=== PATIENT | male | born 1935 | race Hispanic/Latino ===

== ENCOUNTER 2017-03-02 16:34 | Emergency (ER) | payer MEDICARE ==
--- NOTE | 2017-03-02 20:32 | Emergency Department Report ---
ED General Adult HPI - General Chief complaint: Fall Stated complaint: MULTIPLE FALLS Time Seen by Provider: 03/02/17 20:16 Source: patient, EMS Mode of arrival: Stretcher Limitations: Physical Limitation - History of Present Illness Initial comments: Patient is a 81-year-old male who is presenting status post fall. Patient states he fell from his porch. Patient states he was not dizzy had no shortness of breath or chest pain at the time. Patient states he simply fell because his foot caught on the ground and he toppled over. Patient has had multiple falls recently. -: This afternoon Location: upper extremity (patient has a skin tear to the right shoulder. Patient denying any pain at this time. Patient states he can move his shoulder with no issues. Patient denies hitting his head. Patient denies loss of consciousness.) Severity scale (0 -10): 2 Consistency: now resolved Improves with: none Worsens with: none Associated Symptoms: denies: confusion, chest pain, cough, diaphoresis, fever/ chills, headaches, malaise, nausea/vomiting, rash, seizure, shortness of breath , syncope, weakness - Related Data Previous Rx's Medication Instructions Recorded Last Taken Type ALBUTEROL NEB's [Proventil 0.083% 2.5 mg IH Q4HRT PRN #30 nebu 11/29/16 Unknown Rx NEBS] Bisacodyl [Dulcolax suppos] 10 mg [place] QDAY PRN #30 supp.rect 11/29/16 Unknown Rx Cyanocobalamin [Vitamin B-12] 1,000 mcg PO QDAY #30 tablet 11/29/16 Unknown Rx Ferrous Sulfate [Feosol 325 MG tab] 325 mg PO BID #60 tablet 11/29/16 Unknown Rx HYDROcodone/APAP 5-325 [[place] 1 each PO Q6H PRN #30 tablet 11/29/16 Unknown Rx 5-325 mg TAB] Levofloxacin [Levaquin] 750 mg PO QDAY #5 tablet 11/29/16 Unknown Rx Metoprolol [Lopressor TAB] 25 mg PO BID #60 tablet 11/29/16 Unknown Rx Allergies Allergy/AdvReac Type Severity Reaction Status Date / Time Penicillins Allergy Hives Verified 05/10/14 21:24 ED Review of Systems ROS: Stated complaint: MULTIPLE FALLS Other details as noted in HPI Comment: All other systems reviewed and negative ED Past Medical Hx - Past Medical History Hx Hypertension: Yes (not presently on meds) Hx Asthma: Yes Hx COPD: Yes (severe, not on home o2) Hx HIV: No - Social History Smoking Status: Current Every Day Smoker Substance Use Type: None - Medications Home Medications: Home Medications Medication Instructions Recorded Confirmed Last Taken Type ALBUTEROL NEB's [Proventil 0.083% 2.5 mg IH Q4HRT PRN #30 nebu 11/29/16 Unknown Rx NEBS] Bisacodyl [Dulcolax suppos] 10 mg [place] QDAY PRN #30 supp.rect 11/29/16 Unknown Rx Cyanocobalamin [Vitamin B-12] 1,000 mcg PO QDAY #30 tablet 11/29/16 Unknown Rx Ferrous Sulfate [Feosol 325 MG tab] 325 mg PO BID #60 tablet 11/29/16 Unknown Rx HYDROcodone/APAP 5-325 [[place] 1 each PO Q6H PRN #30 tablet 11/29/16 Unknown Rx 5-325 mg TAB] Levofloxacin [Levaquin] 750 mg PO QDAY #5 tablet 11/29/16 Unknown Rx Metoprolol [Lopressor TAB] 25 mg PO BID #60 tablet 11/29/16 Unknown Rx ED Physical Exam - General Limitations: Physical Limitation General appearance: alert, in no apparent distress - Head Head exam: Present: atraumatic, normocephalic - Eye Eye exam: Present: normal appearance - ENT ENT exam: Present: mucous membranes moist - Neck Neck exam: Present: normal inspection - Respiratory Respiratory exam: Present: normal lung sounds bilaterally. Absent: respiratory distress - Cardiovascular Cardiovascular Exam: Present: regular rate, normal rhythm. Absent: systolic murmur, diastolic murmur, rubs, gallop - GI/Abdominal GI/Abdominal exam: Present: soft, normal bowel sounds - Rectal Rectal exam: Present: deferred - Extremities Exam Extremities exam: Present: normal inspection - Back Exam Back exam: Present: normal inspection - Neurological Exam Neurological exam: Present: alert, oriented X3 - Psychiatric Psychiatric exam: Present: normal affect, normal mood - Skin Skin exam: Present: warm, dry, intact, normal color, other (patient has a 4 x 4 centimeter skin tear to the right deltoid. There is also a small skin tear on the right forearm.). Absent: rash ED Course Vital Signs 03/02/17 03/02/17 03/02/17 16:48 19:48 21:08 Temperature 97.8 F 97.8 F Pulse Rate 82 98 H Pulse Rate [ 80 Lying] Respiratory 18 20 Rate Blood Pressure 102/55 Blood Pressure 110/62 [Left] Blood Pressure 112/61 [Lying] O2 Sat by Pulse 99 95 Oximetry 03/03/17 03/03/17 01:57 03:34 Temperature 98.9 F Pulse Rate 72 84 Pulse Rate [ Lying] Respiratory 20 20 Rate Blood Pressure Blood Pressure 94/56 99/56 [Left] Blood Pressure [Lying] O2 Sat by Pulse 94 100 Oximetry ED Medical Decision Making - Lab Data Result diagrams: 03/02/17 21:57 03/02/17 21:57 - Medical Decision Making Patient received 2 L of normal saline. A blood pressure did stabilize to roughly 95 systolic. Patient is very small and frail this most likely represents a normal blood pressure for this gentleman. Patient was having no symptoms upon standing. Patient's skin tear will be dressed with nonstick dressings and patient will be discharged at this time. Critical care attestation.: If time is entered above; I have spent that time in minutes in the direct care of this critically ill patient, excluding procedure time. ED Disposition Clinical Impression: Dehydration, Skin tear Disposition: DC-01 TO HOME OR SELFCARE Is pt being admited?: No Does the pt Need Aspirin: No Condition: Fair Instructions: Skin Tear (ED), Dehydration (ED) Referrals: [place] GOMEZ MD [Primary Care Provider] - 3-5 Days
[2017-03-02] MEDS ORDERED: NACL 0.9% 1000 ML 1,000 ML IV ONE (21:28)
[2017-03-02 22:17] LABS: Basophils % (Auto) 0.1 % (0.0-1.8); Hematocrit 34.8 % (35.5-45.6); Hemoglobin 11.2 gm/dl (11.8-15.2); Lymphocytes # (Auto) 1.2 K/mm3 (1.2-5.4); Lymphocytes % (Auto) 6.5 % (13.4-35.0); Mean Corpuscular HGB Conc 32 % (32-34); Mean Corpuscular Volume 76 fl (84-94); Monocytes # (Auto) 0.8 K/mm3 (0.0-0.8); Monocytes % (Auto) 4.3 % (0.0-7.3); Platelet Count 329 K/mm3 (140-440); Red Blood Count 4.61 M/mm3 (3.65-5.03); Red Cell Distribution Width 19.4 % (13.2-15.2)
[2017-03-02 22:31] LABS: BUN/Creatinine Ratio 26; Blood Urea Nitrogen 21 mg/dL (9-20); Calcium 8.3 mg/dL (8.4-10.2); Hemolysis Index 10
[2017-03-02 22:34] LABS: Mean Corpuscular Hemoglobin 24 pg (28-32)
[2017-03-03] MEDS ORDERED: NACL 0.9% 1000 ML 1,000 ML IV ONE (00:29)
[2017-03-03 03:35] VITALS: BP 99/56
== END 2017-03-03 06:55 | disposition home or self-care (01) ==
LOC: ED 16:34
DX: S46.911A Strain of unspecified muscle, fascia and tendon at shoulder and upper arm level, right arm, initial encounter (principal); E86.0 Dehydration; W18.30XA Fall on same level, unspecified, initial encounter; Y93.89 Activity, other specified; Y92.89 Other specified places as the place of occurrence of the external cause; Y99.8 Other external cause status; I10 Essential (primary) hypertension; J45.909 Unspecified asthma, uncomplicated; F17.200 Nicotine dependence, unspecified, uncomplicated
CPT/HCPCS: 36415; 80048; 85025; 96360; 96361; 99284; J7030; 96375

== ENCOUNTER 2017-03-23 17:51 | Inpatient (IN) | payer MEDICARE ==
--- NOTE | 2017-03-23 22:32 | XRay Report ---
FINAL REPORT EXAM: XR CHEST 1V AP HISTORY: sob TECHNIQUE: AP portable view of the chest. PRIORS: None. FINDINGS: The cardiomediastinal silhouette appears normal. There is a large right mid to lower lung airspace infiltrate and large right pleural effusion. The bones are diffusely demineralized. IMPRESSION: Large right mid to lower lung airspace infiltrate consistent with pneumonia. Large right pleural effusion.
--- NOTE | 2017-03-23 23:25 | Cat Scan Report ---
FINAL REPORT EXAM: CT HEAD/BRAIN WO CON HISTORY: ? slurred speech TECHNIQUE: Contiguous axial images of the head were obtained without the use of intravenous contrast. PRIORS: None. FINDINGS: The cerebral hemispheres are without focal lesions. There is no evidence of acute infarct or intracranial hemorrhage. There is no mass lesion or mass effect. There are no abnormal extra-axial fluid collections. The ventricles and sulci are prominent consistent with generalized loss of brain substance, appropriate for age. There is deep white matter lucency consistent with chronic microvascular ischemic disease. The visualized skull and orbits are unremarkable. The visualized paranasal sinuses are clear. IMPRESSION: 1. No evidence of acute infarct or intracranial hemorrhage. 2. White matter lucency consistent with chronic microvascular ischemic disease.
[2017-03-23] MEDS ORDERED: LEVAQUIN 750MG/150ML 750 MG/150 ML BAG IV ONE (23:28)
--- NOTE | 2017-03-23 23:52 | Emergency Department Report ---
- General Chief complaint: Medical Clearance Stated complaint: SLURRED SPEECH/WORMS IN STOOL Time Seen by Provider: 03/23/17 21:41 Source: EMS Mode of arrival: Stretcher Limitations: No Limitations - History of Present Illness Initial comments: 81 yo male with a past medical history COPD (not on home oxygen), asthma, and hypertension presents to the hospital with complaints of generalized weakness for the last 4-5 days. Patient has been wheelchair bound 1 month but unable to get up without total assistance for the last 4-5 days. Decreased appetite reported. No complaints of pain or fever. Patient presents alert and oriented to person, place, but not severe. He has no physical complaints but patient has a lot of congestion and wet sounding cough during examination. Case discussed with patient's son was able to provide history listed above. Patient denies any pain. Son expresses confirm for slurred speech and possible stroke. He also states that patient has worms moving around in his stools. Son's phone number is [phone] Severity scale (0 -10): 0 - Related Data Previous Rx's Medication Instructions Recorded Last Taken Type ALBUTEROL NEB's [Proventil 0.083% 2.5 mg IH Q4HRT PRN #30 nebu 11/29/16 Unknown Rx NEBS] Bisacodyl [Dulcolax suppos] 10 mg [place] QDAY PRN #30 supp.rect 11/29/16 Unknown Rx Cyanocobalamin [Vitamin B-12] 1,000 mcg PO QDAY #30 tablet 11/29/16 Unknown Rx Ferrous Sulfate [Feosol 325 MG tab] 325 mg PO BID #60 tablet 11/29/16 Unknown Rx HYDROcodone/APAP 5-325 [[place] 1 each PO Q6H PRN #30 tablet 11/29/16 Unknown Rx 5-325 mg TAB] Metoprolol [Lopressor TAB] 25 mg PO BID #60 tablet 11/29/16 Unknown Rx Allergies Allergy/AdvReac Type Severity Reaction Status Date / Time Penicillins Allergy Hives Verified 03/23/17 17:55 ED Review of Systems ROS: Stated complaint: SLURRED SPEECH/WORMS IN STOOL Other details as noted in HPI Comment: Unobtainable due to pts medical conditions (limited, pt does not voice complaints) ED Past Medical Hx - Past Medical History Hx Hypertension: Yes (not presently on meds) Hx Asthma: Yes Hx COPD: Yes (severe, not on home o2) Hx HIV: No - Social History Smoking Status: Current Every Day Smoker Substance Use Type: None - Medications Home Medications: Home Medications Medication Instructions Recorded Confirmed Last Taken Type ALBUTEROL NEB's [Proventil 0.083% 2.5 mg IH Q4HRT PRN #30 nebu 11/29/16 Unknown Rx NEBS] Bisacodyl [Dulcolax suppos] 10 mg [place] QDAY PRN #30 supp.rect 11/29/16 03/23/17 Unknown Rx Cyanocobalamin [Vitamin B-12] 1,000 mcg PO QDAY #30 tablet 11/29/16 03/23/17 Unknown Rx Ferrous Sulfate [Feosol 325 MG tab] 325 mg PO BID #60 tablet 11/29/16 03/23/17 Unknown Rx HYDROcodone/APAP 5-325 [[place] 1 each PO Q6H PRN #30 tablet 11/29/16 03/23/17 Unknown Rx 5-325 mg TAB] Metoprolol [Lopressor TAB] 25 mg PO BID #60 tablet 11/29/16 03/23/17 Unknown Rx ED Physical Exam - General Limitations: No Limitations - Other Other exam information: General: No limitations Head exam: Atraumatic, normocephalic Eyes exam: Normal appearance ENT: Moist mucous membrane, normal oropharynx Neck exam: Normal inspection, full range of motion Respiratory exam: Wet sounding cough, bilateral rhonchi greater on the right with diminished right base breath sounds Cardiovascular: Regular rate and rhythm Abdomen: Soft, nondistended, and nontender, with normal bowel sounds, no rebound, or guarding Extremity: Full range of motion normal inspection no deformity Back: Normal Inspection, full range of motion, no tenderness Neurologic: Alert, oriented x2 (not to year), some mild slurred speech. Cranial nerves intact. Equal hand production material coordinator with 5/5 upper extremity strength. The foot dorsiflexion with some antigravity movement of her legs unable to sustain either leg. Nonfocal exam. Sensation grossly intact Psychiatric: normal affect, normal mood Skin: Warm, dry, intact ED Course Vital Signs 03/23/17 03/23/17 03/24/17 17:55 21:37 00:02 Temperature 98.0 F Pulse Rate 90 96 H 95 H Respiratory 22 20 22 Rate Blood Pressure 120/60 133/65 Blood Pressure 125/70 [Left] O2 Sat by Pulse 99 96 96 Oximetry - Reevaluation(s) Reevaluation #1: 03/24/17 00:16 called son and given an update regarding admission plan, pneumonia, hypoxia and effusion. labs pending at this time ED Medical Decision Making - Lab Data Result diagrams: 03/24/17 00:01 03/24/17 00:01 Lab Results 03/23/17 03/23/17 03/24/17 Range/Units 22:52 23:19 00:01 WBC 7.6 (4.5-11.0) K/mm3 RBC 4.77 (3.65-5.03) M/mm3 Hgb 11.7 L (11.8-15.2) gm/dl Hct 36.8 (35.5-45.6) % MCV 77 L (84-94) fl MCH 25 L (28-32) pg MCHC 32 (32-34) % RDW 21.1 H (13.2-15.2) % Plt Count 415 (140-440) K/mm3 Lymph % (Auto) 6.5 L (13.4-35.0) % [place] % (Auto) 11.8 H (0.0-7.3) % Eos % (Auto) 0.0 (0.0-4.3) % Baso % (Auto) 0.2 (0.0-1.8) % Lymph # 0.5 L (1.2-5.4) K/mm3 [place] # 0.9 H (0.0-0.8) K/mm3 Eos # 0.0 (0.0-0.4) K/mm3 Baso # 0.0 (0.0-0.1) K/mm3 Seg Neutrophils % 81.5 H (40.0-70.0) % Seg Neutrophils # 6.2 (1.8-7.7) K/mm3 POC ABG pH 7.324 L 7.331 L (7.35-7.45) POC ABG pCO2 72.2 H 69.4 H (35-45) POC ABG pO2 39 L 33 L (80-105) POC ABG HCO3 37.5 36.7 POC ABG Total CO2 40 39 POC ABG O2 Sat 66 56 POC ABG Base Excess 11 11 FiO2 21 21 % Sodium (137-145) mmol/L Potassium (3.6-5.0) mmol/L Chloride (98-107) mmol/L Carbon Dioxide (22-30) mmol/L Anion Gap mmol/L BUN (9-20) mg/dL Creatinine (0.8-1.5) mg/dL Estimated GFR ml/min BUN/Creatinine Ratio % Glucose (75-100) mg/dL Lactic Acid (0.7-2.0) mmol/L Calcium (8.4-10.2) mg/dL Magnesium (1.7-2.3) mg/dL Total Creatine Kinase (55-170) units/L CK-MB (CK-2) (0.0-4.0) ng/mL CK-MB (CK-2) Rel Index (0-4) Troponin T (0.00-0.029) ng/mL NT-Pro-B Natriuret Pep (0-900) pg/mL 03/24/17 03/24/17 03/24/17 Range/Units 00:01 00:01 00:01 WBC (4.5-11.0) K/mm3 RBC (3.65-5.03) M/mm3 Hgb (11.8-15.2) gm/dl Hct (35.5-45.6) % MCV (84-94) fl MCH (28-32) pg MCHC (32-34) % RDW (13.2-15.2) % Plt Count (140-440) K/mm3 Lymph % (Auto) (13.4-35.0) % [place] % (Auto) (0.0-7.3) % Eos % (Auto) (0.0-4.3) % Baso % (Auto) (0.0-1.8) % Lymph # (1.2-5.4) K/mm3 [place] # (0.0-0.8) K/mm3 Eos # (0.0-0.4) K/mm3 Baso # (0.0-0.1) K/mm3 Seg Neutrophils % (40.0-70.0) % Seg Neutrophils # (1.8-7.7) K/mm3 POC ABG pH (7.35-7.45) POC ABG pCO2 (35-45) POC ABG pO2 (80-105) POC ABG HCO3 POC ABG Total CO2 POC ABG O2 Sat POC ABG Base Excess FiO2 % Sodium 141 (137-145) mmol/L Potassium 5.2 H (3.6-5.0) mmol/L Chloride 97.7 L (98-107) mmol/L Carbon Dioxide 30 (22-30) mmol/L Anion Gap 19 mmol/L BUN 32 H (9-20) mg/dL Creatinine 0.5 L (0.8-1.5) mg/dL Estimated GFR > 60 ml/min BUN/Creatinine Ratio 64 % Glucose 68 L (75-100) mg/dL Lactic Acid 1.20 (0.7-2.0) mmol/L Calcium 8.8 (8.4-10.2) mg/dL Magnesium 2.20 (1.7-2.3) mg/dL Total Creatine Kinase 25 L (55-170) units/L CK-MB (CK-2) 3.8 (0.0-4.0) ng/mL CK-MB (CK-2) Rel Index 15.2 H (0-4) Troponin T 0.015 (0.00-0.029) ng/mL NT-Pro-B Natriuret Pep 6340 H (0-900) pg/mL - EKG Data -: EKG Interpreted by Me (pac's) EKG shows normal: sinus rhythm (92), axis (68), QRS complexes (118), ST-T waves (no stemi/t inv) - EKG Data When compared to previous EKG there are: no significant change - Radiology Data Radiology results: report reviewed ct head: no acute finding or intracranial hemorrhage. white matter lucency conststent with chronic microvascular ischemic disease Chest x-ray: Large right mid to lower lung x-ray consistent with pneumonia. Large right pleural fusion - Medical Decision Making Generalized weakness , slurred speech, decreased mental status Likely related to hypoxia CT head without acute findings UA collection pending Nonfocal exam Pneumonia/effusion Associated hypoxia Supplemental oxygen provided Pulses COPD with retention. Chronic component based on minimal respiratory acidosis BiPAP initiated Levaquin initiated Cultures pending No signs of sepsis or septic shock at this time Worms in stool report Stool studies ordered and pending Son informed of patient admission Hospitalist informed for admission - Differential Diagnosis CO2 retention, hypoxemia, pneumonia, effusion, CVA, infection Critical Care Time: No Critical care attestation.: If time is entered above; I have spent that time in minutes in the direct care of this critically ill patient, excluding procedure time. ED Disposition Clinical Impression: Pneumonia, Pleural effusion, right, Elevated brain natriuretic peptide (BNP) level, Hypoxia, CO2 retention, COPD (chronic obstructive pulmonary disease) Disposition: OP ADMIT IP TO THIS HOSP Is pt being admited?: Yes Condition: Stable Time of Disposition: 00:58 (Abbie/hosp)
[2017-03-24 00:46] LABS: Creatine Kinase MB 3.8 ng/mL (0.0-4.0)
[2017-03-24 00:47] LABS: BUN/Creatinine Ratio 64; Basophils % (Auto) 0.2 % (0.0-1.8); Blood Urea Nitrogen 32 mg/dL (9-20); Calcium 8.8 mg/dL (8.4-10.2); Hematocrit 36.8 % (35.5-45.6); Hemoglobin 11.7 gm/dl (11.8-15.2); Hemolysis Index 21; Lymphocytes # (Auto) 0.5 K/mm3 (1.2-5.4); Lymphocytes % (Auto) 6.5 % (13.4-35.0); Mean Corpuscular HGB Conc 32 % (32-34); Mean Corpuscular Volume 77 fl (84-94); Monocytes # (Auto) 0.9 K/mm3 (0.0-0.8); Monocytes % (Auto) 11.8 % (0.0-7.3); Platelet Count 415 K/mm3 (140-440); Red Blood Count 4.77 M/mm3 (3.65-5.03)
[2017-03-24 00:50] LABS: Mean Corpuscular Hemoglobin 25 pg (28-32); Red Cell Distribution Width 21.1 % (13.2-15.2)
[2017-03-24 02:48] LABS: Bilirubin,Urine NEG (Negative); Blood,Urine SM (Negative); Color,Urine Yellow (Yellow); Granular Casts,Urine 7 /LPF; Hyaline Casts,Urine 38 /LPF; Mucus,Urine FEW /HPF; Nitrite,Urine NEG (Negative)
[2017-03-24] MEDS ORDERED: DULCOLAX PR PRN (04:54)
[2017-03-24] MEDS ORDERED: PROVENTIL IH PRN (04:54)
--- NOTE | 2017-03-24 04:54 | History and Physical Report ---
History of Present Illness Date of admission: 03/24/17 01:04 Chief complaint: generalized weakness History of present illness: Patient was not able to give history and his son was not with him by the time I examined him and history is obtained for ED report. ROS couldn't be obtained because the patient has dementia. "81 yo male with a past medical history COPD (not on home oxygen), asthma, and hypertension presents to the hospital with complaints of generalized weakness for the last 4-5 days. Patient has been wheelchair bound 1 month but unable to get up without total assistance for the last 4-5 days. Decreased appetite reported. No complaints of pain or fever. Patient presents alert and oriented to person, place, but not severe. He has no physical complaints but patient has a lot of congestion and wet sounding cough during examination. Case discussed with patient's son was able to provide history listed above. Patient denies any pain. Son expresses confirm for slurred speech and possible stroke. He also states that patient has worms moving around in his stools. Son's phone number is [phone]." Past History Past Medical History: COPD, hypertension Past Surgical History: Other (couldn't obtained because of dementia.) Social history: other (couldn't obtained because of dementia.) Family history: other (couldn't obtained because of dementia.) Medications and Allergies Allergies Allergy/AdvReac Type Severity Reaction Status Date / Time Penicillins Allergy Hives Verified 03/23/17 17:55 Home Medications Medication Instructions Recorded Confirmed Last Taken Type ALBUTEROL NEB's [Proventil 0.083% 2.5 mg IH Q4HRT PRN #30 nebu 11/29/16 Unknown Rx NEBS] Bisacodyl [Dulcolax suppos] 10 mg [place] QDAY PRN #30 supp.rect 11/29/16 03/23/17 Unknown Rx Cyanocobalamin [Vitamin B-12] 1,000 mcg PO QDAY #30 tablet 11/29/16 03/23/17 Unknown Rx Ferrous Sulfate [Feosol 325 MG tab] 325 mg PO BID #60 tablet 11/29/16 03/23/17 Unknown Rx HYDROcodone/APAP 5-325 [[place] 1 each PO Q6H PRN #30 tablet 11/29/16 03/23/17 Unknown Rx 5-325 mg TAB] Metoprolol [Lopressor TAB] 25 mg PO BID #60 tablet 11/29/16 03/23/17 Unknown Rx Active Meds: Active Medications Influenza Virus Vaccine Quadrival (Fluarix Quad [id number](36 Mos+) 0.5 ml IM .ONCE ONE Stop: 03/27/17 12:01 Pneumococcal Polyvalent Vaccine (Pneumovax 23) 0.5 ml IM .ONCE ONE Stop: 03/27/17 12:01 Review of Systems ROS unobtainable: due to mental status (couldn't obtained because of dementia.) Exam - Physical Exam Narrative exam: Not in cardiopulmonary distress. The patient appeared well nourished and normally developed. Vital signs as documented. Head exam is unremarkable. No scleral icterus . Neck is without jugular venous distension, thyromegaly, or carotid bruits. Lungs decrease air entry on the right lower lung zone . Cardiac exam reveals regular rate and Rhythm. First and second heart sounds normal. No murmurs, rubs or gallops. Abdominal exam reveals normal bowel sounds, no masses, no organomegaly and no aortic enlargement. Extremities are nonedematous and both femoral and pedal pulses are normal. 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 - Constitutional Vitals: Temp Pulse Resp BP Pulse Ox 98.0 F 95 H 18 119/75 96 03/23/17 21:37 03/24/17 00:02 03/24/17 02:51 03/24/17 02:51 03/24/17 00:02 Results - Labs CBC & Chem 7: 03/24/17 00:01 03/24/17 00:01 Labs: Laboratory Last Values WBC 7.6 K/mm3 (4.5-11.0) 03/24/17 00:01 RBC 4.77 M/mm3 (3.65-5.03) 03/24/17 00:01 Hgb 11.7 gm/dl (11.8-15.2) L 03/24/17 00:01 Hct 36.8 % (35.5-45.6) 03/24/17 00:01 MCV 77 fl (84-94) L 03/24/17 00:01 MCH 25 pg (28-32) L 03/24/17 00:01 MCHC 32 % (32-34) 03/24/17 00:01 RDW 21.1 % (13.2-15.2) H 03/24/17 00:01 Plt Count 415 K/mm3 (140-440) 03/24/17 00:01 Lymph % (Auto) 6.5 % (13.4-35.0) L 03/24/17 00:01 [place] % (Auto) 11.8 % (0.0-7.3) H 03/24/17 00:01 Eos % (Auto) 0.0 % (0.0-4.3) 03/24/17 00:01 Baso % (Auto) 0.2 % (0.0-1.8) 03/24/17 00:01 Lymph # 0.5 K/mm3 (1.2-5.4) L 03/24/17 00:01 [place] # 0.9 K/mm3 (0.0-0.8) H 03/24/17 00:01 Eos # 0.0 K/mm3 (0.0-0.4) 03/24/17 00:01 Baso # 0.0 K/mm3 (0.0-0.1) 03/24/17 00:01 Seg Neutrophils % 81.5 % (40.0-70.0) H 03/24/17 00:01 Seg Neutrophils # 6.2 K/mm3 (1.8-7.7) 03/24/17 00:01 POC ABG pH 7.331 (7.35-7.45) L 03/23/17 23:19 POC ABG pCO2 69.4 (35-45) H 03/23/17 23:19 POC ABG pO2 33 (80-105) L 03/23/17 23:19 POC ABG HCO3 36.7 03/23/17 23:19 POC ABG Total CO2 39 03/23/17 23:19 POC ABG O2 Sat 56 03/23/17 23:19 POC ABG Base Excess 11 03/23/17 23:19 FiO2 21 % 03/23/17 23:19 Sodium 141 mmol/L (137-145) 03/24/17 00:01 Potassium 5.2 mmol/L (3.6-5.0) H 03/24/17 00:01 Chloride 97.7 mmol/L (98-107) L 03/24/17 00:01 Carbon Dioxide 30 mmol/L (22-30) 03/24/17 00:01 Anion Gap 19 mmol/L 03/24/17 00:01 BUN 32 mg/dL (9-20) H 03/24/17 00:01 Creatinine 0.5 mg/dL (0.8-1.5) L 03/24/17 00:01 Estimated GFR > 60 ml/min 03/24/17 00:01 BUN/Creatinine Ratio 64 % 03/24/17 00:01 Glucose 68 mg/dL (75-100) L 03/24/17 00:01 POC Glucose 83 (70-105) 03/24/17 01:11 Lactic Acid 1.20 mmol/L (0.7-2.0) 03/24/17 00:01 Calcium 8.8 mg/dL (8.4-10.2) 03/24/17 00:01 Magnesium 2.20 mg/dL (1.7-2.3) 03/24/17 00:01 Total Creatine Kinase 25 units/L (55-170) L 03/24/17 00:01 CK-MB (CK-2) 3.8 ng/mL (0.0-4.0) 03/24/17 00:01 CK-MB (CK-2) Rel Index 15.2 (0-4) H 03/24/17 00:01 Troponin T 0.015 ng/mL (0.00-0.029) 03/24/17 00:01 NT-Pro-B Natriuret Pep 6340 pg/mL (0-900) H 03/24/17 00:01 Urine Color Yellow (Yellow) 03/24/17 01:29 Urine Turbidity Clear (Clear) 03/24/17 01:29 Urine pH 5.0 (5.0-7.0) 03/24/17 01:29 Ur Specific [place] 1.024 (1.003-1.030) 03/24/17 01: Urine Protein 30 mg/dl mg/dL (Negative) 03/24/17 01:29 Urine Glucose (UA) Neg mg/dL (Negative) 03/24/17 01:29 Urine Ketones Neg mg/dL (Negative) 03/24/17 01: Urine Blood Sm (Negative) 03/24/17 01: Urine Nitrite Neg (Negative) 03/24/17 01:29 Urine Bilirubin Neg (Negative) 03/24/17 01:29 Urine Urobilinogen 2.0 mg/dL (<2.0) 03/24/17 01:29 Ur Leukocyte Esterase Neg (Negative) 03/24/17 01:29 Urine WBC (Auto) 2.0 /HPF (0.0-6.0) 03/24/17 01:29 Urine RBC (Auto) 44.0 /HPF (0.0-6.0) 03/24/17 01:29 Hyaline Casts 38 /LPF 03/24/17 01:29 Granular Casts 7 /LPF 03/24/17 01:29 Urine Mucus Few /HPF 03/24/17 01:29 - Imaging and Cardiology Chest x-ray: image reviewed (right lower lung zone with large right pleural effusion.) Assessment and Plan Assessment and plan: Acute hypoxic hypercapnic respiratory failure - At presentation saturation was in the 60s and 70s without oxygen but was not documented - Patient is on BiPAP and he is saturating well, ABG was done Aspiration pneumonia, with right-sided pleural effusion -Patient is on IV Levaquin and clindamycin -Chest CT was ordered to further localize the effusion -Pulmonary consulted -Patient nothing by mouth Dementia DVT prophylaxis - Heparin Disposition - Admit to telemetry
[2017-03-24] MEDS ORDERED: ZOSYN/NS 3.375GM/50ML 3.375 GM/50 ML BAG IV SCH (06:00)
[2017-03-24] MEDS: CLEOCIN 600 MG/50 mL 600 MG/50 ML BAG IV SCH ×3 (06:36→22:40)
[2017-03-24] MEDS: DUONEB *Not for PRN Use IH SCH ×4 (07:34→20:20)
--- NOTE | 2017-03-24 08:04 | Event Note ---
Date: 03/24/17 Pt seen and examined admitted with acute respiratory failure due to aspiration PNA will cont current management and plan as dictated in the H/P
[2017-03-24] MEDS ORDERED: LEVAQUIN 750MG/150ML 750 MG/150 ML BAG IV SCH (10:00)
[2017-03-24] MEDS: LOPRESSOR PO SCH ×2 (10:00→22:41)
[2017-03-24] MEDS: VITAMIN B-12 PO SCH (10:03)
[2017-03-24] MEDS: FEOSOL PO SCH ×2 (10:04→22:40)
--- NOTE | 2017-03-24 10:59 | Consultation ---
History of Present Illness History of present illness: seen and examined Past History Past Medical History: COPD, hypertension Past Surgical History: Other (couldn't obtained because of dementia.) Social history: other (couldn't obtained because of dementia.) Family history: other (couldn't obtained because of dementia.) Medications and Allergies Allergies Allergy/AdvReac Type Severity Reaction Status Date / Time Penicillins Allergy Hives Verified 03/23/17 17:55 Home Medications Medication Instructions Recorded Confirmed Last Taken Type ALBUTEROL NEB's [Proventil 0.083% 2.5 mg IH Q4HRT PRN #30 nebu 11/29/16 Unknown Rx NEBS] Bisacodyl [Dulcolax suppos] 10 mg VA QDAY PRN #30 supp.rect 11/29/16 03/23/17 Unknown Rx Cyanocobalamin [Vitamin B-12] 1,000 mcg PO QDAY #30 tablet 11/29/16 03/23/17 Unknown Rx Ferrous Sulfate [Feosol 325 MG tab] 325 mg PO BID #60 tablet 11/29/16 03/23/17 Unknown Rx HYDROcodone/APAP 5-325 [[place] 1 each PO Q6H PRN #30 tablet 11/29/16 03/23/17 Unknown Rx 5-325 mg TAB] Metoprolol [Lopressor TAB] 25 mg PO BID #60 tablet 11/29/16 03/23/17 Unknown Rx Active Meds: Active Medications Acetaminophen/Hydrocodone Bitart ([place] 5/325) 1 each PO Q6H PRN PRN Reason: Pain, Moderate (4-6) Albuterol (Proventil) 2.5 mg IH Q4HRT PRN PRN Reason: Shortness Of Breath Albuterol/Ipratropium (Duoneb *Not For Prn Use*) 1 ampul IH QIDRT [facility] Last Admin: 03/24/17 07:34 Dose: 1 ampul Bisacodyl (Dulcolax) 10 mg VA QDAY PRN PRN Reason: Constipation unrelieved by MOM Cyanocobalamin (Vitamin B-12) 1,000 mcg PO QDAY [facility] Last Admin: 03/24/17 10:03 Dose: 1,000 mcg Ferrous Sulfate (Feosol) 325 mg PO BID [facility] Last Admin: 03/24/17 10:04 Dose: 325 mg Dextrose/Sodium Chloride (D5ns) 1,000 mls @ 100 mls/hr IV DIRECT FRANCESCA Clindamycin HCl (Cleocin 600 Mg/50 Ml) 600 mg in 50 mls @ 100 mls/hr IV Q8HR [facility] Last Admin: 03/24/17 06:36 Dose: 100 mls/hr Levofloxacin/Dextrose (Levaquin 750mg/150ml) 750 mg in 150 mls @ 100 mls/hr IV Q48HR [facility] PRN Reason: Protocol Influenza Virus Vaccine Quadrival (Fluarix Quad 1140-3909(36 Mos+) 0.5 ml IM .ONCE ONE Stop: 03/27/17 12:01 Metoprolol Tartrate (Lopressor) 25 mg PO BID [facility] Pneumococcal Polyvalent Vaccine (Pneumovax 23) 0.5 ml IM .ONCE ONE Stop: 03/27/17 12:01 Physical Examination Vital signs: Vital Signs Pulse Resp BP Pulse Ox 90 22 120/60 99 03/23/17 17:55 03/23/17 17:55 03/23/17 17:55 03/23/17 17:55 Results - Laboratory Findings CBC and BMP: 03/24/17 00:01 03/24/17 00:01 ABG POC ABG pH 7.300 (7.35-7.45) L 03/24/17 09:44 POC ABG pCO2 80.4 (35-45) H 03/24/17 09:44 POC ABG pO2 114 (80-105) H 03/24/17 09:44 POC ABG HCO3 39.5 03/24/17 09:44 POC ABG Total CO2 42 03/24/17 09:44 POC ABG O2 Sat 98 03/24/17 09:44 Abnormal lab findings: Abnormal Labs 03/23/17 03/23/17 03/24/17 22:52 23:19 00:01 Hgb 11.7 L MCV 77 L MCH 25 L RDW 21.1 H Lymph % (Auto) 6.5 L Garrett % (Auto) 11.8 H Lymph # 0.5 L Garrett # 0.9 H Seg Neutrophils % 81.5 H POC ABG pH 7.324 L 7.331 L POC ABG pCO2 72.2 H 69.4 H POC ABG pO2 39 L 33 L Potassium Chloride BUN Creatinine Glucose Total Creatine Kinase CK-MB (CK-2) Rel Index NT-Pro-B Natriuret Pep 03/24/17 03/24/17 00:01 09:44 Hgb MCV MCH RDW Lymph % (Auto) Garrett % (Auto) Lymph # Garrett # Seg Neutrophils % POC ABG pH 7.300 L POC ABG pCO2 80.4 H POC ABG pO2 114 H Potassium 5.2 H Chloride 97.7 L BUN 32 H Creatinine 0.5 L Glucose 68 L Total Creatine Kinase 25 L CK-MB (CK-2) Rel Index 15.2 H NT-Pro-B Natriuret Pep 6340 H
--- NOTE | 2017-03-24 12:20 | Cat Scan Report ---
CT CHEST WITHOUT CONTRAST: 03/24/17 10:20 CLINICAL: Right pleural effusion. No comparison. TECHNIQUE: Volumetric acquisition and 1.25 mm scan reconstructions without contrast. FINDINGS: Extensive bilateral multilobar centrilobular emphysema with greater involvement of the upper lobes. A spiculated left upper lobe opacity measures 1.3 x 1.2 cm image 61, series 1. A spicule extends to the lateral pleura but there is no pleural thickening. Right upper lobe pleural thickening and a 1.3 x 1.0 cm spiculated opacity image 61, series 1. This lesion is contiguous with pleural thickening. This Right lower lobe consolidation with air bronchograms and a large right pleural effusion. The heart is normal except for coronary artery calcifications. Moderate aortic calcifications. No hilar or mediastinal lymphadenopathy. The upper abdomen is remarkable for moderate ascites. IMPRESSION: 1. Right lower lobe pneumonia and a large right pleural effusion. 2. Bilateral upper lobe spiculated lung opacities which are most likely scars. However, bronchogenic tumor cannot be excluded. CT-guided percutaneous biopsy of the left upper lobe lesion which is the most suspicious lesion would entail a high risk for pneumothorax. CT followup may be the best option.
[2017-03-24] MEDS: D5NS 1,000 ML IV SCH (19:41)
[2017-03-24] MEDS ORDERED: KIONEX PR ONE (20:00)
[2017-03-24] MEDS ORDERED: CALCIUM GLUCONATE 1,000 MG in NACL 0.9% 100 ML IV ONE (20:00)
[2017-03-25] MEDS: CLEOCIN 600 MG/50 mL 600 MG/50 ML BAG IV SCH ×3 (06:30→23:19)
[2017-03-25 07:16] LABS: Eosinophils % (Auto) 0.1 % (0.0-4.3); Lymphocytes # (Auto) 0.4 K/mm3 (1.2-5.4); Lymphocytes % (Auto) 6.3 % (13.4-35.0); Mean Corpuscular HGB Conc 31 % (32-34); Mean Corpuscular Volume 77 fl (84-94); Monocytes # (Auto) 0.7 K/mm3 (0.0-0.8); Monocytes % (Auto) 9.9 % (0.0-7.3); Platelet Count 318 K/mm3 (140-440); Red Blood Count 3.72 M/mm3 (3.65-5.03)
[2017-03-25 07:30] LABS: Mean Corpuscular Hemoglobin 24 pg (28-32); Red Cell Distribution Width 20.5 % (13.2-15.2)
[2017-03-25 07:31] LABS: Hematocrit 30.2 % (35.5-45.6)
[2017-03-25 07:41] LABS: BUN/Creatinine Ratio 56; Blood Urea Nitrogen 28 mg/dL (9-20); Calcium 8.4 mg/dL (8.4-10.2); Hemolysis Index 0
[2017-03-25] MEDS: DUONEB *Not for PRN Use IH SCH ×4 (09:15→22:12)
[2017-03-25] MEDS: LOPRESSOR PO SCH ×2 (10:00→23:20)
[2017-03-25] MEDS: FEOSOL PO SCH ×2 (12:30→23:20)
[2017-03-25] MEDS: VITAMIN B-12 PO SCH (12:30)
--- NOTE | 2017-03-25 13:01 | Consultation ---
HISTORY OF PRESENT ILLNESS: The patient is a 81-year-old gentleman who comes in with complaints of weakness. The patient was reportedly in his usual state of relatively good health until approximately a month ago when he began having weakness. The patient has been wheelchair bound since and he has not been able to get up without assistance for the past 4-5 days prior to admission. He also has reported some significant decrease in appetite with associated shortness of breath. The patient reported ____ had slurred speech prior to admission. Presently, the patient is awake and responsive. PAST MEDICAL HISTORY: COPD, hypertension. PAST SURGICAL HISTORY: None. SOCIAL HISTORY: Per chart, I think he lives at home. FAMILY HISTORY: Not obtainable. No family at bedside. REVIEW OF SYSTEMS: The patient denies any headache, any blurry vision and does report cough, does report some shortness of breath. PHYSICAL EXAMINATION: VITAL SIGNS: Blood pressure 130/70, 96, 20. GENERAL: male lying in bed. HEENT: Pupils reactive. Trachea midline. NECK: Supple. CARDIOVASCULAR: Normal S1, S2. ABDOMEN: Positive bowel sounds, soft, nontender. EXTREMITIES: Failed to reveal cyanosis, clubbing or edema. NEUROLOGICAL: Alert, oriented, but confused. Chest x-ray shows pleural effusion and increased interstitial markings. LABORATORY DATA: Cultures pending. White count of 7.6, hemoglobin 11.7, platelet count of 4.5. Arterial blood gas done, initially 7.33, 69, ____. Potassium was 5.2, sodium of 141, creatinine 0.5, BUN of 32. CT of the head, no acute infarct. IMPRESSION: 1. This gentleman with acute on possible chronic respiratory failure, chronic obstructive pulmonary disease with exacerbation. 2. Possible aspiration pneumonia. 3. Pneumonia with pleural effusion. 4. Dyspnea. 5. Possible dementia. 6. Progressive weakness. At this time, we will continue clindamycin. We will also add Levaquin. I agree with speech therapy consult for aspiration risk ____ at all times. Continue O2 wean as tolerated. Consider BiPAP if needed. Continue supportive care. We will need PT, OT evaluation for patient's severe deconditioning. JOB# [id number] NARENDRA/NTS
--- NOTE | 2017-03-25 13:47 | Progress Note ---
Assessment and Plan - Patient Problems (1) Acute respiratory failure with hypoxemia Current Visit: Yes Status: Acute (2) CO2 retention Current Visit: Yes Status: Acute (3) COPD (chronic obstructive pulmonary disease) Current Visit: Yes Status: Acute Qualifiers: COPD type: COPD with acute lower respiratory infection Qualified Code(s): J44.0 - Chronic obstructive pulmonary disease with acute lower respiratory infection (4) Hypoxia Current Visit: Yes Status: Acute (5) Pleural effusion, right Current Visit: Yes Status: Acute (6) Pneumonia Current Visit: Yes Status: Acute Qualifiers: Pneumonia type: aspiration pneumonia (7) Malnutrition Current Visit: Yes Status: Chronic Qualifiers: Malnutrition type: protein-calorie malnutrition (8) Mass of lung Current Visit: Yes Status: Suspected (9) Encephalopathy acute Current Visit: Yes Status: Acute Subjective Interval history: awake and responsive Objective Vital Signs - 12hr 03/25/17 03/25/17 03/25/17 02:00 04:39 09:15 Temperature 98.1 F Pulse Rate 80 Pulse Rate [ 69 Anterior Bilateral Throughout] Respiratory 22 Rate Respiratory 17 Rate [Anterior Bilateral Throughout] Blood Pressure 112/61 Blood Pressure [Left] O2 Sat by Pulse 94 Oximetry 03/25/17 03/25/17 03/25/17 09:16 09:17 10:00 Temperature 97.9 F Pulse Rate 70 Pulse Rate [ 70 Anterior Bilateral Throughout] Respiratory 18 Rate Respiratory 19 Rate [Anterior Bilateral Throughout] Blood Pressure 102/55 Blood Pressure 90/47 [Left] O2 Sat by Pulse 97 97 Oximetry Constitutional: no acute distress, alert Eyes: non-icteric ENT: oropharynx moist Neck: supple Effort: normal Ascultation: Bilateral: rhonchi (rare) Cardiovascular: regular rate and rhythm Gastrointestinal: normoactive bowel sounds, soft, non-tender, non-distended CBC and BMP: 03/25/17 05:59 03/25/17 05:59 ABG, PT/INR, D-dimer: ABG POC ABG pH 7.397 (7.35-7.45) 03/24/17 16:02 POC ABG pCO2 61.3 (35-45) H 03/24/17 16:02 POC ABG pO2 85 (80-105) 03/24/17 16:02 POC ABG HCO3 37.7 03/24/17 16:02 POC ABG Total CO2 40 03/24/17 16:02 POC ABG O2 Sat 96 03/24/17 16:02 Abnormal lab findings: Abnormal Labs 03/23/17 03/23/17 03/24/17 22:52 23:19 00:01 Hgb 11.7 L Hct MCV 77 L MCH 25 L MCHC RDW 21.1 H Lymph % (Auto) 6.5 L Whitman % (Auto) 11.8 H Lymph # 0.5 L Whitman # 0.9 H Seg Neutrophils % 81.5 H POC ABG pH 7.324 L 7.331 L POC ABG pCO2 72.2 H 69.4 H POC ABG pO2 39 L 33 L Sodium Potassium Chloride Carbon Dioxide BUN Creatinine Glucose Total Creatine Kinase CK-MB (CK-2) Rel Index NT-Pro-B Natriuret Pep 03/24/17 03/24/17 03/24/17 00:01 09:44 16:02 Hgb Hct MCV MCH MCHC RDW Lymph % (Auto) Whitman % (Auto) Lymph # Whitman # Seg Neutrophils % POC ABG pH 7.300 L POC ABG pCO2 80.4 H 61.3 H POC ABG pO2 114 H Sodium Potassium 5.2 H Chloride 97.7 L Carbon Dioxide BUN 32 H Creatinine 0.5 L Glucose 68 L Total Creatine Kinase 25 L CK-MB (CK-2) Rel Index 15.2 H NT-Pro-B Natriuret Pep 6340 H 03/25/17 03/25/17 05:59 05:59 Hgb 9.0 L Hct 30.2 L D MCV 77 L MCH 24 L MCHC 31 L RDW 20.5 H Lymph % (Auto) 6.3 L Whitman % (Auto) 9.9 H Lymph # 0.4 L Whitman # Seg Neutrophils % 83.7 H POC ABG pH POC ABG pCO2 POC ABG pO2 Sodium 146 H Potassium Chloride Carbon Dioxide 36 H BUN 28 H Creatinine 0.5 L Glucose Total Creatine Kinase CK-MB (CK-2) Rel Index NT-Pro-B Natriuret Pep CT scan - chest: report reviewed, image reviewed
[2017-03-25] MEDS ORDERED: LEVAQUIN 750MG/150ML 750 MG/150 ML BAG IV ONE (14:08)
--- NOTE | 2017-03-25 15:33 | Progress Note ---
Assessment and Plan / Acute respiratory failure with hypoxemia - likely from aspiration PNA and underlying COPD - At presentation saturation was in the 60s and 70s without oxygen but was not documented - Patient was placed on BiPAP and now he is saturating well with n/c, - cont to treat underlying cause with nebs, abx /COPD (chronic obstructive pulmonary disease) with exacerbation - Chronic obstructive pulmonary disease presented with acute lower respiratory infection - cont nebs, abx, low dose steroid, BiPAP as needed / Pleural effusion, right Plan for thoracenthesis tomorrow / Aspiration Pneumonia Pt is allergic to PCN cont to treat with clindamycin and levaquin aspiration precaution /Malnutrition (severe protein-calorie malnutrition) consulted dietary / Mass of lung, Suspected need further workup when more stable pulmonary following / Encephalopathy acute likely from respiratory failure and underlying dementia Brief history: 81 yo male with a past medical history COPD (not on home oxygen) , asthma, and hypertension presents to the hospital with complaints of generalized weakness for the last 4-5 days. Radiological data: CXY - Rt LL consolidation and pleural effusion CT chest - Rt pleural effusion, RLL PNA. B/L UL opacity need to r/o malignancy CT head - no acute intracranial process Physical exam: GENERAL: elderly malnourished male lying on bed appeared to be lethargic HEENT: Normocephalic. Atraumatic. No conjunctival congestion or icterus. Patient has very dry mucous membranes. NECK: Supple. Trachea midline. CHEST/LUNGS: Coarse auscultated bilaterally, breathing slightly labored. HEART/CARDIOVASCULAR: Regular in rate and rhythm. S1 and S2 positive. ABDOMEN: Abdomen is soft, nontender. Patient has normal bowel sounds. SKIN: There is no rash. Warm and dry. NEURO: No focal motor deficit. Follows command. MUSCULOSKELETAL: No joint effusion or tenderness. generalized muscle wasting EXTRIMITY: No edema, no cyanosis or clubbing. PSYCH: Cooperative. Subjective Date of service: 03/25/17 Interval history: Pt seen and examined resting with N./c No acute event o/n Passed swallow study for pureed diet but no liquid Objective - Constitutional Vitals: Vital Signs - 12hr 03/25/17 03/25/17 03/25/17 04:39 09:15 09:16 Temperature 98.1 F Pulse Rate Pulse Rate [ 69 70 Anterior Bilateral Throughout] Respiratory 22 Rate Respiratory 17 19 Rate [Anterior Bilateral Throughout] Blood Pressure 112/61 Blood Pressure [Left] O2 Sat by Pulse 94 Oximetry 03/25/17 03/25/17 03/25/17 09:17 10:00 13:59 Temperature 97.9 F Pulse Rate 70 Pulse Rate [ 72 Anterior Bilateral Throughout] Respiratory 18 Rate Respiratory 18 Rate [Anterior Bilateral Throughout] Blood Pressure 102/55 Blood Pressure 90/47 [Left] O2 Sat by Pulse 97 97 Oximetry - Labs CBC & Chem 7: 03/25/17 05:59 03/25/17 05:59 Labs: Abnormal lab results 03/24/17 03/25/17 03/25/17 Range/Units 16:02 05:59 05:59 Hgb 9.0 L (11.8-15.2) gm/dl Hct 30.2 L D (35.5-45.6) % MCV 77 L (84-94) fl MCH 24 L (28-32) pg MCHC 31 L (32-34) % RDW 20.5 H (13.2-15.2) % Lymph % (Auto) 6.3 L (13.4-35.0) % Avery % (Auto) 9.9 H (0.0-7.3) % Lymph # 0.4 L (1.2-5.4) K/mm3 Seg Neutrophils % 83.7 H (40.0-70.0) % POC ABG pCO2 61.3 H (35-45) Sodium 146 H (137-145) mmol/L Carbon Dioxide 36 H (22-30) mmol/L BUN 28 H (9-20) mg/dL Creatinine 0.5 L (0.8-1.5) mg/dL
[2017-03-25] MEDS: LEVAQUIN 750MG/150ML 750 MG/150 ML BAG IV SCH (19:41)
[2017-03-26] MEDS: CLEOCIN 600 MG/50 mL 600 MG/50 ML BAG IV SCH ×3 (05:08→21:43)
[2017-03-26] MEDS: D5NS 1,000 ML IV SCH ×2 (05:08→21:42)
[2017-03-26] MEDS: DUONEB *Not for PRN Use IH SCH ×4 (10:14→20:45)
[2017-03-26 10:31] LABS: Hematocrit 29.5 % (35.5-45.6); Hemoglobin 9.4 gm/dl (11.8-15.2); Mean Corpuscular HGB Conc 32 % (32-34); Mean Corpuscular Volume 77 fl (84-94); Platelet Count 262 K/mm3 (140-440); Red Blood Count 3.85 M/mm3 (3.65-5.03)
[2017-03-26 10:32] LABS: Mean Corpuscular Hemoglobin 24 pg (28-32); Red Cell Distribution Width 20.8 % (13.2-15.2)
[2017-03-26 10:42] LABS: INR 1.19 (0.87-1.13)
[2017-03-26 10:44] LABS: BUN/Creatinine Ratio 56; Blood Urea Nitrogen 28 mg/dL (9-20); Calcium 8.1 mg/dL (8.4-10.2); Hemolysis Index 14
--- NOTE | 2017-03-26 11:54 | Progress Note ---
Assessment and Plan 81 y/o male with acute respiratory failure, abnormal CT scan with right sided pleural effusion and upper lobe spiculated lesions and diffuse emphysema. 1. ordered glucose and cytology for pleural fluid as well 2. Hopeful Rads will drain dry. 3. continue neb therapy for COPD as currently ordered 4. Abx regimen as ordered by primary Subjective Date of service: 03/26/17 Interval history: No acute events. Going for thoracentesis today per chart. I ordered a glucose to be measured on fluid as pH is not done appropriately in this lab. Objective Vital Signs - 12hr 03/26/17 03/26/17 04:47 07:50 Temperature 98.1 F 97.7 F Pulse Rate 67 64 Respiratory 24 Rate Blood Pressure 88/55 Blood Pressure 88/52 [Left] O2 Sat by Pulse 81 L Oximetry Constitutional: no acute distress, alert Eyes: non-icteric ENT: oropharynx moist Neck: supple Effort: normal Ascultation: Bilateral: rhonchi (rare) Cardiovascular: regular rate and rhythm Gastrointestinal: normoactive bowel sounds, soft, non-tender, non-distended CBC and BMP: 03/26/17 10:04 03/26/17 10:04 ABG, PT/INR, D-dimer: ABG POC ABG pH 7.397 (7.35-7.45) 03/24/17 16:02 POC ABG pCO2 61.3 (35-45) H 03/24/17 16:02 POC ABG pO2 85 (80-105) 03/24/17 16:02 POC ABG HCO3 37.7 03/24/17 16:02 POC ABG Total CO2 40 03/24/17 16:02 POC ABG O2 Sat 96 03/24/17 16:02 PT/INR, D-dimer PT 15.7 Sec. (12.2-14.9) H 03/26/17 10:14 INR 1.19 (0.87-1.13) H 03/26/17 10:14 Abnormal lab findings: Abnormal Labs 03/23/17 03/23/17 03/24/17 22:52 23:19 00:01 Hgb 11.7 L Hct MCV 77 L MCH 25 L MCHC RDW 21.1 H Lymph % (Auto) 6.5 L Rains % (Auto) 11.8 H Lymph # 0.5 L Rains # 0.9 H Seg Neutrophils % 81.5 H PT INR POC ABG pH 7.324 L 7.331 L POC ABG pCO2 72.2 H 69.4 H POC ABG pO2 39 L 33 L Sodium Potassium Chloride Carbon Dioxide BUN Creatinine Glucose Calcium Total Creatine Kinase CK-MB (CK-2) Rel Index NT-Pro-B Natriuret Pep 03/24/17 03/24/17 03/24/17 00:01 09:44 16:02 Hgb Hct MCV MCH MCHC RDW Lymph % (Auto) Rains % (Auto) Lymph # Rains # Seg Neutrophils % PT INR POC ABG pH 7.300 L POC ABG pCO2 80.4 H 61.3 H POC ABG pO2 114 H Sodium Potassium 5.2 H Chloride 97.7 L Carbon Dioxide BUN 32 H Creatinine 0.5 L Glucose 68 L Calcium Total Creatine Kinase 25 L CK-MB (CK-2) Rel Index 15.2 H NT-Pro-B Natriuret Pep 6340 H 03/25/17 03/25/17 03/26/17 05:59 05:59 10:04 Hgb 9.0 L 9.4 L Hct 30.2 L D 29.5 L MCV 77 L 77 L MCH 24 L 24 L MCHC 31 L RDW 20.5 H 20.8 H Lymph % (Auto) 6.3 L Rains % (Auto) 9.9 H Lymph # 0.4 L Rains # Seg Neutrophils % 83.7 H PT INR POC ABG pH POC ABG pCO2 POC ABG pO2 Sodium 146 H Potassium Chloride Carbon Dioxide 36 H BUN 28 H Creatinine 0.5 L Glucose Calcium Total Creatine Kinase CK-MB (CK-2) Rel Index NT-Pro-B Natriuret Pep 03/26/17 03/26/17 10:04 10:14 Hgb Hct MCV MCH MCHC RDW Lymph % (Auto) Rains % (Auto) Lymph # Rains # Seg Neutrophils % PT 15.7 H INR 1.19 H POC ABG pH POC ABG pCO2 POC ABG pO2 Sodium Potassium Chloride Carbon Dioxide 33 H BUN 28 H Creatinine 0.5 L Glucose Calcium 8.1 L Total Creatine Kinase CK-MB (CK-2) Rel Index NT-Pro-B Natriuret Pep
--- NOTE | 2017-03-26 14:48 | Ultrasound Report ---
ULTRASOUND THORACENTESIS INDICATION: Right pleural effusion. COMPARISON: None similar. FINDINGS: Ultrasound guided right thoracentesis performed. Patient unable to consent himself for the procedure and obtained from the patient's son after explaining the risks and benefits. Patient brought in the ultrasound room. An appropriate skin site marked. Using standard sterile precautions and 1% lidocaine for local anesthesia, 5 Portuguese Yueh catheter advanced into the pleural fluid. Total of approximately 1300 cc of yellow serous fluid obtained with sample sent to the lab. Catheter removed and hemostasis achieved. Patient returned to his room. No immediate complications. CONCLUSION: Status post right thoracentesis, as described. A 1 hour post procedure chest x-ray ordered. Dr. Garcia present for and performed the entire procedure. Thank you for the opportunity to participate in this patient's care.
--- NOTE | 2017-03-26 14:53 | Procedure Note ---
Date of procedure: 03/26/17 Pre-op diagnosis: Pleural effusion Post-op diagnosis: same Procedure: US guided right thoracentesis Findings: 1300 cc yellow serous fluid drained. Anesthesia: local Surgeon: KAY ARELLANO Estimated blood loss: none Specimen disposition: to lab Condition: stable Disposition: floor (Post proc CXR ordered)
[2017-03-26] MEDS: LOPRESSOR PO SCH ×2 (14:56→21:43)
[2017-03-26 15:18] LABS: Total Cells Counted 100 /mm3
[2017-03-26] MEDS: LEVAQUIN PO SCH (15:30)
[2017-03-26] MEDS: FEOSOL PO SCH ×2 (15:30→21:43)
[2017-03-26] MEDS: VITAMIN B-12 PO SCH (15:30)
--- NOTE | 2017-03-26 16:03 | XRay Report ---
PORTABLE CHEST INDICATION: Post right thoracentesis. COMPARISON: 03/23/2017 FINDINGS: Portable, frontal chest radiograph demonstrates much clearing of right mid to lower lung hazy pleural effusion, though some fluid remains at the base with persistent costophrenic angle blunting and partial obscuration of the right hemidiaphragm. Pulmonary infiltration also again seen, right more than left. Stable cardiomediastinal silhouette, aortic knob calcifications and demineralized bones. EKG leads. CONCLUSION: No acute complication following right thoracentesis with other findings, as above. Thank you for the opportunity to participate in this patient's care.
--- NOTE | 2017-03-26 16:31 | Progress Note ---
Assessment and Plan / Pleural effusion, right s/p thoracenthesis today, drained 1300 cc will follow pleural fluid study / Acute respiratory failure with hypoxemia - likely from aspiration PNA and underlying COPD - At presentation saturation was in the 60s and 70s without oxygen but was not documented - Patient was placed on BiPAP and now he is saturating well with n/c, - cont to treat underlying cause with nebs, abx /COPD (chronic obstructive pulmonary disease) with exacerbation - Chronic obstructive pulmonary disease presented with acute lower respiratory infection - cont nebs, abx, low dose steroid, BiPAP as needed / Aspiration Pneumonia Pt is allergic to PCN cont to treat with clindamycin and levaquin aspiration precaution /Malnutrition (severe protein-calorie malnutrition) consulted dietary / Mass of lung, Suspected need further workup when more stable pulmonary following / Encephalopathy acute likely from respiratory failure and underlying dementia Brief history: 81 yo male with a past medical history COPD (not on home oxygen) , asthma, and hypertension presents to the hospital with complaints of generalized weakness for the last 4-5 days. Radiological data: CXY - Rt LL consolidation and pleural effusion CT chest - Rt pleural effusion, RLL PNA. B/L UL opacity need to r/o malignancy CT head - no acute intracranial process Physical exam: GENERAL: elderly malnourished male lying on bed appeared to be in no distress HEENT: Normocephalic. Atraumatic. No conjunctival congestion or icterus. Patient has very dry mucous membranes. NECK: Supple. Trachea midline. CHEST/LUNGS: Coarse auscultated bilaterally, breathing slightly labored. HEART/CARDIOVASCULAR: Regular in rate and rhythm. S1 and S2 positive. ABDOMEN: Abdomen is soft, nontender. Patient has normal bowel sounds. SKIN: There is no rash. Warm and dry. NEURO: No focal motor deficit. Follows command. MUSCULOSKELETAL: No joint effusion or tenderness. generalized muscle wasting EXTRIMITY: No edema, no cyanosis or clubbing. PSYCH: Cooperative. Subjective Date of service: 03/26/17 Interval history: Pt seen and examined resting with N./c No acute event o/n Passed swallow study for pureed diet but no liquid wants to eat call to Son to discuss plan of care and left a voice message Objective - Constitutional Vitals: Vital Signs - 12hr 03/26/17 03/26/17 03/26/17 04:47 07:50 14:56 Temperature 98.1 F 97.7 F Pulse Rate 67 64 63 Respiratory 24 Rate Blood Pressure 88/55 100/55 Blood Pressure 88/52 [Left] O2 Sat by Pulse 81 L Oximetry 03/26/17 15:41 Temperature 97.9 F Pulse Rate 50 L Respiratory 22 Rate Blood Pressure Blood Pressure 92/48 [Left] O2 Sat by Pulse 93 Oximetry - Labs CBC & Chem 7: 03/26/17 10:04 03/26/17 10:04 Labs: Abnormal lab results 03/26/17 03/26/17 03/26/17 Range/Units 10:04 10:04 10:14 Hgb 9.4 L (11.8-15.2) gm/dl Hct 29.5 L (35.5-45.6) % MCV 77 L (84-94) fl MCH 24 L (28-32) pg RDW 20.8 H (13.2-15.2) % PT 15.7 H (12.2-14.9) Sec. INR 1.19 H (0.87-1.13) Carbon Dioxide 33 H (22-30) mmol/L BUN 28 H (9-20) mg/dL Creatinine 0.5 L (0.8-1.5) mg/dL Calcium 8.1 L (8.4-10.2) mg/dL
[2017-03-26] MEDS: LEVAQUIN 750MG/150ML 750 MG/150 ML BAG IV SCH (21:23)
[2017-03-26] MEDS: NORCO 5/325 PO PRN (21:43)
[2017-03-27] MEDS: CLEOCIN 600 MG/50 mL 600 MG/50 ML BAG IV SCH ×3 (05:30→22:00)
[2017-03-27 07:46] LABS: Hematocrit 29.8 % (35.5-45.6); Hemoglobin 9.3 gm/dl (11.8-15.2); Mean Corpuscular HGB Conc 31 % (32-34); Mean Corpuscular Volume 77 fl (84-94); Platelet Count 248 K/mm3 (140-440); Red Blood Count 3.87 M/mm3 (3.65-5.03)
[2017-03-27 08:21] LABS: Mean Corpuscular Hemoglobin 24 pg (28-32); Red Cell Distribution Width 20.8 % (13.2-15.2)
[2017-03-27] MEDS: DUONEB *Not for PRN Use IH SCH ×4 (09:01→19:18)
[2017-03-27] MEDS: VITAMIN B-12 PO SCH (10:29)
[2017-03-27] MEDS: FEOSOL PO SCH ×2 (10:29→22:04)
[2017-03-27] MEDS ORDERED: Fluarix Quad 2017-2018(36 MOS+ IM ONE (12:00)
[2017-03-27] MEDS ORDERED: PNEUMOVAX 23 IM ONE (12:00)
--- NOTE | 2017-03-27 12:29 | Progress Note ---
Assessment and Plan 81 y/o male with acute respiratory failure, abnormal CT scan with right sided pleural effusion and upper lobe spiculated lesions and diffuse emphysema. 1. ordered glucose and cytology for pleural fluid as well, these results are still pending. Total protein and LDH are still pending 2. only small amount of fluid remains on right. CXR other torres is stable 3. continue neb therapy for COPD as currently ordered 4. Abx regimen as ordered by primary 5. spoke with lab and glucose, total protein as well as LDH are sendouts. Called the director of the lab to ask more questions about this. Subjective Date of service: 03/27/17 Interval history: No acute events. Had Thora done yesterday with 1300 cc's of fluid removed. Some labs back, some labs showed as received but not resulted. Currently on the phone holding for lab/micro. Objective Vital Signs - 12hr 03/27/17 03/27/17 03/27/17 04:46 09:06 09:07 Temperature 97.9 F Pulse Rate 60 Pulse Rate [ 65 Anterior Bilateral Throughout] Pulse Rate [ 66 Throughout] Respiratory 18 Rate Respiratory 20 Rate [Anterior Bilateral Throughout] Respiratory 18 Rate [ Throughout] Blood Pressure 85/46 O2 Sat by Pulse 100 99 Oximetry Constitutional: no acute distress, alert Eyes: non-icteric ENT: oropharynx moist Neck: supple Effort: normal Ascultation: Bilateral: rhonchi (rare) Cardiovascular: regular rate and rhythm Gastrointestinal: normoactive bowel sounds, soft, non-tender, non-distended CBC and BMP: 03/27/17 07:18 03/26/17 10:04 ABG, PT/INR, D-dimer: ABG POC ABG pH 7.397 (7.35-7.45) 03/24/17 16:02 POC ABG pCO2 61.3 (35-45) H 03/24/17 16:02 POC ABG pO2 85 (80-105) 03/24/17 16:02 POC ABG HCO3 37.7 03/24/17 16:02 POC ABG Total CO2 40 03/24/17 16:02 POC ABG O2 Sat 96 03/24/17 16:02 PT/INR, D-dimer PT 15.7 Sec. (12.2-14.9) H 03/26/17 10:14 INR 1.19 (0.87-1.13) H 03/26/17 10:14 Abnormal lab findings: Abnormal Labs 03/23/17 03/23/17 03/24/17 22:52 23:19 00:01 Hgb 11.7 L Hct MCV 77 L MCH 25 L MCHC RDW 21.1 H Lymph % (Auto) 6.5 L [place] % (Auto) 11.8 H Lymph # 0.5 L [place] # 0.9 H Seg Neutrophils % 81.5 H PT INR POC ABG pH 7.324 L 7.331 L POC ABG pCO2 72.2 H 69.4 H POC ABG pO2 39 L 33 L Sodium Potassium Chloride Carbon Dioxide BUN Creatinine Glucose Calcium Total Creatine Kinase CK-MB (CK-2) Rel Index NT-Pro-B Natriuret Pep 03/24/17 03/24/17 03/24/17 00:01 09:44 16:02 Hgb Hct MCV MCH MCHC RDW Lymph % (Auto) [place] % (Auto) Lymph # [place] # Seg Neutrophils % PT INR POC ABG pH 7.300 L POC ABG pCO2 80.4 H 61.3 H POC ABG pO2 114 H Sodium Potassium 5.2 H Chloride 97.7 L Carbon Dioxide BUN 32 H Creatinine 0.5 L Glucose 68 L Calcium Total Creatine Kinase 25 L CK-MB (CK-2) Rel Index 15.2 H NT-Pro-B Natriuret Pep 6340 H 03/25/17 03/25/17 03/26/17 05:59 05:59 10:04 Hgb 9.0 L 9.4 L Hct 30.2 L D 29.5 L MCV 77 L 77 L MCH 24 L 24 L MCHC 31 L RDW 20.5 H 20.8 H Lymph % (Auto) 6.3 L [place] % (Auto) 9.9 H Lymph # 0.4 L [place] # Seg Neutrophils % 83.7 H PT INR POC ABG pH POC ABG pCO2 POC ABG pO2 Sodium 146 H Potassium Chloride Carbon Dioxide 36 H BUN 28 H Creatinine 0.5 L Glucose Calcium Total Creatine Kinase CK-MB (CK-2) Rel Index NT-Pro-B Natriuret Pep 03/26/17 03/26/17 03/27/17 10:04 10:14 07:18 Hgb 9.3 L Hct 29.8 L MCV 77 L MCH 24 L MCHC 31 L RDW 20.8 H Lymph % (Auto) [place] % (Auto) Lymph # [place] # Seg Neutrophils % PT 15.7 H INR 1.19 H POC ABG pH POC ABG pCO2 POC ABG pO2 Sodium Potassium Chloride Carbon Dioxide 33 H BUN 28 H Creatinine 0.5 L Glucose Calcium 8.1 L Total Creatine Kinase CK-MB (CK-2) Rel Index NT-Pro-B Natriuret Pep
[2017-03-27] MEDS: LEVAQUIN PO SCH (13:44)
[2017-03-27] MEDS: D5NS 1,000 ML IV SCH (13:45)
--- NOTE | 2017-03-27 15:28 | Progress Note ---
Assessment and Plan Assessment and plan: Acute hypoxic hypercapnic respiratory failure - Patient was treated with IV antibiotics, BiPAP - Currently saturating well Aspiration pneumonia, with right-sided pleural effusion -Patient is on IV Levaquin and clindamycin -Chest CT showed spiculated lesions -Pulmonary consult appreciated -Thoracentesis was done yesterday and about 1.3 L of yellow fluid was drained, some preliminary results are back Dementia - Supportive care DVT prophylaxis - Heparin Disposition - Admit to telemetry History Interval history: patient was seen and evaluated this morning, patient didn't complain fever, pain. Patient is demented. Hospitalist Physical - Physical exam Narrative exam: Not in cardiopulmonary distress. The patient is emaciated. Vital signs as documented. Head exam is unremarkable. No scleral icterus . Neck is without jugular venous distension, thyromegaly, or carotid bruits. Lungs creps on the right lower lung zone. Cardiac exam reveals regular rate and Rhythm. First and second heart sounds normal. No murmurs, rubs or gallops. Abdominal exam reveals normal bowel sounds, no masses, no organomegaly and no aortic enlargement. Extremities are nonedematous and both femoral and pedal pulses are normal. 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 - Constitutional Vitals: Temp Pulse Resp BP Pulse Ox 97.9 F 76 18 85/46 99 03/27/17 04:46 03/27/17 13:12 03/27/17 13:12 03/27/17 04:46 03/27/17 09:06 Results - Labs CBC & Chem 7: 03/27/17 07:18 03/26/17 10:04 Labs: Laboratory Last Values WBC 10.3 K/mm3 (4.5-11.0) 03/27/17 07:18 RBC 3.87 M/mm3 (3.65-5.03) 03/27/17 07:18 Hgb 9.3 gm/dl (11.8-15.2) L 03/27/17 07:18 Hct 29.8 % (35.5-45.6) L 03/27/17 07:18 MCV 77 fl (84-94) L 03/27/17 07:18 MCH 24 pg (28-32) L 03/27/17 07:18 MCHC 31 % (32-34) L 03/27/17 07:18 RDW 20.8 % (13.2-15.2) H 03/27/17 07:18 Plt Count 248 K/mm3 (140-440) 03/27/17 07:18 Lymph % (Auto) 6.3 % (13.4-35.0) L 03/25/17 05:59 [place] % (Auto) 9.9 % (0.0-7.3) H 03/25/17 05:59 Eos % (Auto) 0.1 % (0.0-4.3) 03/25/17 05:59 Baso % (Auto) 0.0 % (0.0-1.8) 03/25/17 05:59 Lymph # 0.4 K/mm3 (1.2-5.4) L 03/25/17 05:59 [place] # 0.7 K/mm3 (0.0-0.8) 03/25/17 05:59 Eos # 0.0 K/mm3 (0.0-0.4) 03/25/17 05:59 Baso # 0.0 K/mm3 (0.0-0.1) 03/25/17 05:59 Seg Neutrophils % 83.7 % (40.0-70.0) H 03/25/17 05:59 Seg Neutrophils # 5.9 K/mm3 (1.8-7.7) 03/25/17 05:59 PT 15.7 Sec. (12.2-14.9) H 03/26/17 10:14 INR 1.19 (0.87-1.13) H 03/26/17 10:14 POC ABG pH 7.397 (7.35-7.45) 03/24/17 16:02 POC ABG pCO2 61.3 (35-45) H 03/24/17 16:02 POC ABG pO2 85 (80-105) 03/24/17 16:02 POC ABG HCO3 37.7 03/24/17 16:02 POC ABG Total CO2 40 03/24/17 16:02 POC ABG O2 Sat 96 03/24/17 16:02 POC ABG Base Excess 13 03/24/17 16:02 FiO2 45 % 03/24/17 16:02 Sodium 144 mmol/L (137-145) 03/26/17 10:04 Potassium 3.8 mmol/L (3.6-5.0) 03/26/17 10:04 Chloride 105.1 mmol/L (98-107) 03/26/17 10:04 Carbon Dioxide 33 mmol/L (22-30) H 03/26/17 10:04 Anion Gap 10 mmol/L 03/26/17 10:04 BUN 28 mg/dL (9-20) H 03/26/17 10:04 Creatinine 0.5 mg/dL (0.8-1.5) L 03/26/17 10:04 Estimated GFR > 60 ml/min 03/26/17 10:04 BUN/Creatinine Ratio 56 % 03/26/17 10:04 Glucose 93 mg/dL (75-100) 03/26/17 10:04 POC Glucose 83 (70-105) 03/24/17 01:11 Lactic Acid 1.20 mmol/L (0.7-2.0) 03/24/17 00:01 Calcium 8.1 mg/dL (8.4-10.2) L 03/26/17 10:04 Magnesium 2.20 mg/dL (1.7-2.3) 03/24/17 00:01 Total Creatine Kinase 25 units/L (55-170) L 03/24/17 00:01 CK-MB (CK-2) 3.8 ng/mL (0.0-4.0) 03/24/17 00:01 CK-MB (CK-2) Rel Index 15.2 (0-4) H 03/24/17 00:01 Troponin T 0.015 ng/mL (0.00-0.029) 03/24/17 00:01 NT-Pro-B Natriuret Pep 6340 pg/mL (0-900) H 03/24/17 00:01 Urine Color Yellow (Yellow) 03/24/17 01:29 Urine Turbidity Clear (Clear) 03/24/17 01: Urine pH 5.0 (5.0-7.0) 03/24/17 01:29 Ur Specific [place] 1.024 (1.003-1.030) 03/24/17 01: Urine Protein 30 mg/dl mg/dL (Negative) 03/24/17 01:29 Urine Glucose (UA) Neg mg/dL (Negative) 03/24/17 01:29 Urine Ketones Neg mg/dL (Negative) 03/24/17 01: Urine Blood Sm (Negative) 03/24/17 01: Urine Nitrite Neg (Negative) 03/24/17 01: Urine Bilirubin Neg (Negative) 03/24/17 01: Urine Urobilinogen 2.0 mg/dL (<2.0) 03/24/17 01:29 Ur Leukocyte Esterase Neg (Negative) 03/24/17 01:29 Urine WBC (Auto) 2.0 /HPF (0.0-6.0) 03/24/17 01: Urine RBC (Auto) 44.0 /HPF (0.0-6.0) 03/24/17 01:29 Hyaline Casts 38 /LPF 03/24/17 01: Granular Casts 7 /LPF 03/24/17 01:29 Urine Mucus Few /HPF 03/24/17 01:29 Fluid Type Pleural 03/26/17 13:45 Fluid Color Yellow 03/26/17 13:45 Fluid Appearance Cloudy 03/26/17 13:45 Fluid WBC 267 /mm3 03/26/17 13:45 Fluid RBC 577 /mm3 03/26/17 13:45 Fluid Diff Comment 03/26/17 13:45 Fluid Seg Neutrophils 49.0 % 03/26/17 13:45 Fluid Lymphocytes 41.0 % 03/26/17 13:45 Fluid Reactive Lymphs 0 % 03/26/17 13:45 Fluid Monocytes 10.0 % 03/26/17 13:45 Fluid Eosinophils 0 % 03/26/17 13:45 Fluid Basophils 0 % 03/26/17 13:45
[2017-03-28] MEDS: CLEOCIN 600 MG/50 mL 600 MG/50 ML BAG IV SCH ×3 (05:59→23:06)
[2017-03-28 06:24] LABS: Hematocrit 30.6 % (35.5-45.6); Hemoglobin 9.6 gm/dl (11.8-15.2); Mean Corpuscular HGB Conc 32 % (32-34); Mean Corpuscular Volume 76 fl (84-94); Platelet Count 272 K/mm3 (140-440)
[2017-03-28 06:36] LABS: Mean Corpuscular Hemoglobin 24 pg (28-32); Red Cell Distribution Width 20.7 % (13.2-15.2)
[2017-03-28 06:44] LABS: BUN/Creatinine Ratio 50; Blood Urea Nitrogen 35 mg/dL (9-20); Calcium 8.2 mg/dL (8.4-10.2); Hemolysis Index 5
[2017-03-28] MEDS: DUONEB *Not for PRN Use IH SCH ×4 (07:33→22:36)
[2017-03-28 08:35] LABS: LDH,Body Fluid 232
[2017-03-28 08:51] LABS: Anisocytosis 1+; Band Neutrophils # (Manual) 0.2 K/mm3; Basophils % (Manual) 0 % (0.0-1.8); Monocytes % (Manual) 0 % (0.0-7.3); Total Cells Counted 100
[2017-03-28 08:52] LABS: Hypochromasia 2+
--- NOTE | 2017-03-28 10:48 | Fluoroscopy Report ---
MODIFIED BARIUM SWALLOW History: dysphagia. Findings: Video radiography was provided by the radiologist for speech therapy to assess the swallowing mechanism. Please refer to the formal report by speech therapy. Impression: Successful modified barium swallow.
[2017-03-28] MEDS: VITAMIN B-12 PO SCH (11:10)
[2017-03-28] MEDS: FEOSOL PO SCH ×2 (11:10→23:00)
--- NOTE | 2017-03-28 13:15 | Progress Note ---
Assessment and Plan 81 y/o male with acute respiratory failure, abnormal CT scan with right sided pleural effusion and upper lobe spiculated lesions and diffuse emphysema. 1. Cytology back but I am not able to view on this computer. 2. PFA is more consistent with transudate, not exudate which would be consistent with infection. Do not feel this a parapneumonic effusion 3. Started IV solumedrol 20q8 4. Added BID pulmicort and brovana 5. Also given lasix 10mg IV x1 6. Continue PPV at night 7. Follow up cyto once at a different computer. Subjective Date of service: 03/28/17 Interval history: Cell Count back on PFA. Glucose actually elevated and protein is very low. This would be most consistent with a transudate. Reveiwed earlier labs and patient's BNP on admit was greater than 6K Objective Vital Signs - 12hr 03/28/17 03/28/17 03/28/17 05:37 07:35 07:50 Temperature 97.6 F Pulse Rate 74 Pulse Rate [ 71 74 Throughout] Respiratory 20 Rate Respiratory 18 16 Rate [ Throughout] Blood Pressure 105/54 O2 Sat by Pulse 80 L Oximetry 03/28/17 03/28/17 03/28/17 08:08 10:00 11:44 Temperature 97.4 F L 97.4 F L Pulse Rate 97 H 82 68 Pulse Rate [ Throughout] Respiratory 20 18 18 Rate Respiratory Rate [ Throughout] Blood Pressure 107/65 109/57 O2 Sat by Pulse 93 95 97 Oximetry Constitutional: no acute distress, alert Eyes: non-icteric ENT: oropharynx moist Neck: supple Effort: normal Ascultation: Bilateral: rhonchi (rare) Cardiovascular: regular rate and rhythm Gastrointestinal: normoactive bowel sounds, soft, non-tender, non-distended CBC and BMP: 03/28/17 05:27 03/28/17 05:27 ABG, PT/INR, D-dimer: ABG POC ABG pH 7.397 (7.35-7.45) 03/24/17 16:02 POC ABG pCO2 61.3 (35-45) H 03/24/17 16:02 POC ABG pO2 85 (80-105) 03/24/17 16:02 POC ABG HCO3 37.7 03/24/17 16:02 POC ABG Total CO2 40 03/24/17 16:02 POC ABG O2 Sat 96 03/24/17 16:02 PT/INR, D-dimer PT 15.7 Sec. (12.2-14.9) H 03/26/17 10:14 INR 1.19 (0.87-1.13) H 03/26/17 10:14 Abnormal lab findings: Abnormal Labs 03/23/17 03/23/17 03/24/17 22:52 23:19 00:01 Hgb 11.7 L Hct MCV 77 L MCH 25 L MCHC RDW 21.1 H Lymph % (Auto) 6.5 L [place] % (Auto) 11.8 H Lymph # 0.5 L [place] # 0.9 H Seg Neutrophils % 81.5 H Seg Neuts % (Manual) Lymphocytes % (Manual) Seg Neutrophils # Man Lymphocytes # (Manual) PT INR POC ABG pH 7.324 L 7.331 L POC ABG pCO2 72.2 H 69.4 H POC ABG pO2 39 L 33 L Sodium Potassium Chloride Carbon Dioxide BUN Creatinine Glucose Calcium Total Creatine Kinase CK-MB (CK-2) Rel Index NT-Pro-B Natriuret Pep Fluid Glucose Fluid Total Protein 03/24/17 03/24/17 03/24/17 00:01 09:44 13:45 Hgb Hct MCV MCH MCHC RDW Lymph % (Auto) [place] % (Auto) Lymph # [place] # Seg Neutrophils % Seg Neuts % (Manual) Lymphocytes % (Manual) Seg Neutrophils # Man Lymphocytes # (Manual) PT INR POC ABG pH 7.300 L POC ABG pCO2 80.4 H POC ABG pO2 114 H Sodium Potassium 5.2 H Chloride 97.7 L Carbon Dioxide BUN 32 H Creatinine 0.5 L Glucose 68 L Calcium Total Creatine Kinase 25 L CK-MB (CK-2) Rel Index 15.2 H NT-Pro-B Natriuret Pep 6340 H Fluid Glucose Fluid Total Protein < 3.0 L 03/24/17 03/25/17 03/25/17 16:02 05:59 05:59 Hgb 9.0 L Hct 30.2 L D MCV 77 L MCH 24 L MCHC 31 L RDW 20.5 H Lymph % (Auto) 6.3 L [place] % (Auto) 9.9 H Lymph # 0.4 L [place] # Seg Neutrophils % 83.7 H Seg Neuts % (Manual) Lymphocytes % (Manual) Seg Neutrophils # Man Lymphocytes # (Manual) PT INR POC ABG pH POC ABG pCO2 61.3 H POC ABG pO2 Sodium 146 H Potassium Chloride Carbon Dioxide 36 H BUN 28 H Creatinine 0.5 L Glucose Calcium Total Creatine Kinase CK-MB (CK-2) Rel Index NT-Pro-B Natriuret Pep Fluid Glucose Fluid Total Protein 03/26/17 03/26/17 03/26/17 10:04 10:04 10:14 Hgb 9.4 L Hct 29.5 L MCV 77 L MCH 24 L MCHC RDW 20.8 H Lymph % (Auto) [place] % (Auto) Lymph # [place] # Seg Neutrophils % Seg Neuts % (Manual) Lymphocytes % (Manual) Seg Neutrophils # Man Lymphocytes # (Manual) PT 15.7 H INR 1.19 H POC ABG pH POC ABG pCO2 POC ABG pO2 Sodium Potassium Chloride Carbon Dioxide 33 H BUN 28 H Creatinine 0.5 L Glucose Calcium 8.1 L Total Creatine Kinase CK-MB (CK-2) Rel Index NT-Pro-B Natriuret Pep Fluid Glucose Fluid Total Protein 03/26/17 03/27/17 03/28/17 13:45 07:18 05:27 Hgb 9.3 L 9.6 L Hct 29.8 L 30.6 L MCV 77 L 76 L MCH 24 L 24 L MCHC 31 L RDW 20.8 H 20.7 H Lymph % (Auto) [place] % (Auto) Lymph # [place] # Seg Neutrophils % Seg Neuts % (Manual) 94.0 H Lymphocytes % (Manual) 3.0 L Seg Neutrophils # Man 8.6 H Lymphocytes # (Manual) 0.3 L PT INR POC ABG pH POC ABG pCO2 POC ABG pO2 Sodium Potassium Chloride Carbon Dioxide BUN Creatinine Glucose Calcium Total Creatine Kinase CK-MB (CK-2) Rel Index NT-Pro-B Natriuret Pep Fluid Glucose 88 H Fluid Total Protein 03/28/17 05:27 Hgb Hct MCV MCH MCHC RDW Lymph % (Auto) [place] % (Auto) Lymph # [place] # Seg Neutrophils % Seg Neuts % (Manual) Lymphocytes % (Manual) Seg Neutrophils # Man Lymphocytes # (Manual) PT INR POC ABG pH POC ABG pCO2 POC ABG pO2 Sodium Potassium Chloride Carbon Dioxide 32 H BUN 35 H Creatinine 0.7 L Glucose 61 L Calcium 8.2 L Total Creatine Kinase CK-MB (CK-2) Rel Index NT-Pro-B Natriuret Pep Fluid Glucose Fluid Total Protein
[2017-03-28] MEDS: LEVAQUIN PO SCH (13:53)
[2017-03-28] MEDS ORDERED: LASIX IV ONE (14:00)
[2017-03-28] MEDS: PULMICORT IH SCH ×2 (14:04→22:36)
[2017-03-28] MEDS: BROVANA NEBU IH SCH ×2 (14:04→22:36)
--- NOTE | 2017-03-28 17:07 | Progress Note ---
Assessment and Plan Assessment and plan: Acute hypoxic hypercapnic respiratory failure - Patient was treated with IV antibiotics, BiPAP - Currently saturating well - On prednsolone - Was give lasix, echo ordered Aspiration pneumonia, with right-sided pleural effusion -Patient is on IV Levaquin and clindamycin -Chest CT showed spiculated lesions -Pulmonary consult appreciated -Thoracentesis was done yesterday and about 1.3 L of yellow fluid was drained, some preliminary results are back, no cancer cells, transudative fluid Dementia - Supportive care DVT prophylaxis - Heparin Disposition - continue inpatient care Patient needs rehab but his families refused, given his severe malnutrition and some skin bruises patient doesn't look like he is getting proper care. I have discussed with case aide to be evaluated by APS. History Interval history: patient was seen and evaluated this morning, patient didn't complain fever, pain. Patient is demented. Hospitalist Physical - Physical exam Narrative exam: Not in cardiopulmonary distress. The patient is emaciated. Vital signs as documented. Head exam is unremarkable. No scleral icterus . Neck is without jugular venous distension, thyromegaly, or carotid bruits. Lungs creps on the right lower lung zone. Cardiac exam reveals regular rate and Rhythm. First and second heart sounds normal. No murmurs, rubs or gallops. Abdominal exam reveals normal bowel sounds, no masses, no organomegaly and no aortic enlargement. Extremities are nonedematous and both femoral and pedal pulses are normal. Skin some bruises all over. 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 - Constitutional Vitals: Temp Pulse Resp BP Pulse Ox 97.4 F L 82 16 109/57 97 03/28/17 11:44 03/28/17 14:08 03/28/17 14:08 03/28/17 11:44 03/28/17 11:44 Results - Labs CBC & Chem 7: 03/28/17 05:27 03/28/17 05:27 Labs: Laboratory Last Values WBC 9.2 K/mm3 (4.5-11.0) 03/28/17 05:27 RBC 4.00 M/mm3 (3.65-5.03) 03/28/17 05:27 Hgb 9.6 gm/dl (11.8-15.2) L 03/28/17 05:27 Hct 30.6 % (35.5-45.6) L 03/28/17 05:27 MCV 76 fl (84-94) L 03/28/17 05:27 MCH 24 pg (28-32) L 03/28/17 05:27 MCHC 32 % (32-34) 03/28/17 05:27 RDW 20.7 % (13.2-15.2) H 03/28/17 05:27 Plt Count 272 K/mm3 (140-440) 03/28/17 05:27 Lymph % (Auto) 6.3 % (13.4-35.0) L 03/25/17 05:59 [place] % (Auto) 9.9 % (0.0-7.3) H 03/25/17 05:59 Eos % (Auto) 0.1 % (0.0-4.3) 03/25/17 05:59 Baso % (Auto) 0.0 % (0.0-1.8) 03/25/17 05:59 Lymph # 0.4 K/mm3 (1.2-5.4) L 03/25/17 05:59 [place] # 0.7 K/mm3 (0.0-0.8) 03/25/17 05:59 Eos # 0.0 K/mm3 (0.0-0.4) 03/25/17 05:59 Baso # 0.0 K/mm3 (0.0-0.1) 03/25/17 05:59 Add Manual Diff Complete 03/28/17 05:27 Total Counted 100 03/28/17 05:27 Seg Neutrophils % 83.7 % (40.0-70.0) H 03/25/17 05:59 Seg Neuts % (Manual) 94.0 % (40.0-70.0) H 03/28/17 05:27 Band Neutrophils % 2.0 % 03/28/17 05:27 Lymphocytes % (Manual) 3.0 % (13.4-35.0) L 03/28/17 05:27 Reactive Lymphs % (Man) 0 % 03/28/17 05:27 Monocytes % (Manual) 0 % (0.0-7.3) 03/28/17 05:27 Eosinophils % (Manual) 1.0 % (0.0-4.3) 03/28/17 05:27 Basophils % (Manual) 0 % (0.0-1.8) 03/28/17 05:27 Metamyelocytes % 0 % 03/28/17 05:27 Myelocytes % 0 % 03/28/17 05:27 Promyelocytes % 0 % 03/28/17 05:27 Blast Cells % 0 % 03/28/17 05:27 Nucleated RBC % Not Reportable 03/28/17 05:27 Seg Neutrophils # 5.9 K/mm3 (1.8-7.7) 03/25/17 05:59 Seg Neutrophils # Man 8.6 K/mm3 (1.8-7.7) H 03/28/17 05:27 Band Neutrophils # 0.2 K/mm3 03/28/17 05:27 Lymphocytes # (Manual) 0.3 K/mm3 (1.2-5.4) L 03/28/17 05:27 Abs React Lymphs (Man) 0.0 K/mm3 03/28/17 05:27 Monocytes # (Manual) 0.0 K/mm3 (0.0-0.8) 03/28/17 05:27 Eosinophils # (Manual) 0.1 K/mm3 (0.0-0.4) 03/28/17 05:27 Basophils # (Manual) 0.0 K/mm3 (0.0-0.1) 03/28/17 05:27 Metamyelocytes # 0.0 K/mm3 03/28/17 05:27 Myelocytes # 0.0 K/mm3 03/28/17 05:27 Promyelocytes # 0.0 K/mm3 03/28/17 05:27 Blast Cells # 0.0 K/mm3 03/28/17 05:27 WBC Morphology Not Reportable 03/28/17 05:27 Hypersegmented Neuts Not Reportable 03/28/17 05:27 Hyposegmented Neuts Not Reportable 03/28/17 05:27 Hypogranular Neuts Not Reportable 03/28/17 05:27 Smudge Cells Not Reportable 03/28/17 05:27 Toxic Granulation Not Reportable 03/28/17 05:27 Toxic Vacuolation Not Reportable 03/28/17 05:27 Dohle Bodies Not Reportable 03/28/17 05:27 Pelger-Huet Anomaly Not Reportable 03/28/17 05:27 Star Rods Not Reportable 03/28/17 05:27 Platelet Estimate Appears normal 03/28/17 05:27 Clumped Platelets Not Reportable 03/28/17 05:27 Plt Clumps, EDTA Not Reportable 03/28/17 05:27 Large Platelets Not Reportable 03/28/17 05:27 Giant Platelets Not Reportable 03/28/17 05:27 Platelet Satelliting Not Reportable 03/28/17 05:27 Plt Morphology Comment Not Reportable 03/28/17 05:27 RBC Morphology Not Reportable 03/28/17 05:27 Dimorphic RBCs Not Reportable 03/28/17 05:27 Polychromasia Not Reportable 03/28/17 05:27 Hypochromasia 2+ 03/28/17 05:27 Poikilocytosis Not Reportable 03/28/17 05:27 Anisocytosis 1+ 03/28/17 05:27 Microcytosis Not Reportable 03/28/17 05:27 Macrocytosis Not Reportable 03/28/17 05:27 Spherocytes Not Reportable 03/28/17 05:27 Pappenheimer Bodies Not Reportable 03/28/17 05:27 Sickle Cells Not Reportable 03/28/17 05:27 Target Cells Not Reportable 03/28/17 05:27 Tear Drop Cells Not Reportable 03/28/17 05:27 Ovalocytes Not Reportable 03/28/17 05:27 Helmet Cells Not Reportable 03/28/17 05:27 [place] Bodies Not Reportable 03/28/17 05:27 Orange Rings Not Reportable 03/28/17 05:27 Epifanio Cells Not Reportable 03/28/17 05:27 Bite Cells Not Reportable 03/28/17 05:27 Crenated Cell Not Reportable 03/28/17 05:27 Elliptocytes Not Reportable 03/28/17 05:27 Acanthocytes (Spur) Not Reportable 03/28/17 05:27 Rouleaux Not Reportable 03/28/17 05:27 Hemoglobin C Crystals Not Reportable 03/28/17 05:27 Schistocytes Not Reportable 03/28/17 05:27 Malaria parasites Not Reportable 03/28/17 05:27 Valentin Bodies Not Reportable 03/28/17 05:27 Hem Pathologist Commnt No 03/28/17 05:27 PT 15.7 Sec. (12.2-14.9) H 03/26/17 10:14 INR 1.19 (0.87-1.13) H 03/26/17 10:14 POC ABG pH 7.397 (7.35-7.45) 03/24/17 16:02 POC ABG pCO2 61.3 (35-45) H 03/24/17 16:02 POC ABG pO2 85 (80-105) 03/24/17 16:02 POC ABG HCO3 37.7 03/24/17 16:02 POC ABG Total CO2 40 03/24/17 16:02 POC ABG O2 Sat 96 03/24/17 16:02 POC ABG Base Excess 13 03/24/17 16:02 FiO2 45 % 03/24/17 16:02 Sodium 145 mmol/L (137-145) 03/28/17 05:27 Potassium 4.2 mmol/L (3.6-5.0) 03/28/17 05:27 Chloride 103.9 mmol/L (98-107) 03/28/17 05:27 Carbon Dioxide 32 mmol/L (22-30) H 03/28/17 05:27 Anion Gap 13 mmol/L 03/28/17 05:27 BUN 35 mg/dL (9-20) H 03/28/17 05:27 Creatinine 0.7 mg/dL (0.8-1.5) L 03/28/17 05:27 Estimated GFR > 60 ml/min 03/28/17 05:27 BUN/Creatinine Ratio 50 % 03/28/17 05:27 Glucose 61 mg/dL (75-100) L 03/28/17 05:27 POC Glucose 83 (70-105) 03/24/17 01:11 Lactic Acid 1.20 mmol/L (0.7-2.0) 03/24/17 00:01 Calcium 8.2 mg/dL (8.4-10.2) L 03/28/17 05:27 Magnesium 2.20 mg/dL (1.7-2.3) 03/24/17 00:01 Total Creatine Kinase 25 units/L (55-170) L 03/24/17 00:01 CK-MB (CK-2) 3.8 ng/mL (0.0-4.0) 03/24/17 00:01 CK-MB (CK-2) Rel Index 15.2 (0-4) H 03/24/17 00:01 Troponin T 0.015 ng/mL (0.00-0.029) 03/24/17 00:01 NT-Pro-B Natriuret Pep 6340 pg/mL (0-900) H 03/24/17 00:01 Urine Color Yellow (Yellow) 03/24/17 01:29 Urine Turbidity Clear (Clear) 03/24/17 01:29 Urine pH 5.0 (5.0-7.0) 03/24/17 01:29 Ur Specific [place] 1.024 (1.003-1.030) 03/24/17 01: Urine Protein 30 mg/dl mg/dL (Negative) 03/24/17 01:29 Urine Glucose (UA) Neg mg/dL (Negative) 03/24/17 01:29 Urine Ketones Neg mg/dL (Negative) 03/24/17 01:29 Urine Blood Sm (Negative) 03/24/17 01:29 Urine Nitrite Neg (Negative) 03/24/17 01:29 Urine Bilirubin Neg (Negative) 03/24/17 01: Urine Urobilinogen 2.0 mg/dL (<2.0) 03/24/17 01:29 Ur Leukocyte Esterase Neg (Negative) 03/24/17 01:29 Urine WBC (Auto) 2.0 /HPF (0.0-6.0) 03/24/17 01:29 Urine RBC (Auto) 44.0 /HPF (0.0-6.0) 03/24/17 01:29 Hyaline Casts 38 /LPF 03/24/17 01:29 Granular Casts 7 /LPF 03/24/17 01:29 Urine Mucus Few /HPF 03/24/17 01:29 Fluid Type Pleural 03/26/17 13:45 Fluid Color Yellow 03/26/17 13:45 Fluid Appearance Cloudy 03/26/17 13:45 Fluid WBC 267 /mm3 03/26/17 13:45 Fluid RBC 577 /mm3 03/26/17 13:45 Fluid Diff Comment 03/26/17 13:45 Fluid Seg Neutrophils 49.0 % 03/26/17 13:45 Fluid Lymphocytes 41.0 % 03/26/17 13:45 Fluid Reactive Lymphs 0 % 03/26/17 13:45 Fluid Monocytes 10.0 % 03/26/17 13:45 Fluid Eosinophils 0 % 03/26/17 13:45 Fluid Basophils 0 % 03/26/17 13:45 Fluid Glucose 88 mg/dL (40-70) H 03/26/17 13:45 Fluid Total Protein < 3.0 (15.0-45.0) L 03/24/17 13:45 Fluid LDH 232 03/26/17 13:45
[2017-03-28] MEDS: D5NS 1,000 ML IV SCH (18:38)
[2017-03-29] MEDS: CLEOCIN 600 MG/50 mL 600 MG/50 ML BAG IV SCH ×3 (05:35→22:07)
[2017-03-29] MEDS: DUONEB *Not for PRN Use IH SCH ×3 (09:37→20:23)
[2017-03-29] MEDS: BROVANA NEBU IH SCH ×2 (09:37→20:24)
[2017-03-29] MEDS: PULMICORT IH SCH ×2 (09:37→20:24)
[2017-03-29] MEDS: FEOSOL PO SCH ×2 (11:42→21:39)
[2017-03-29] MEDS: VITAMIN B-12 PO SCH (11:42)
--- NOTE | 2017-03-29 11:53 | Gastroenterology Consultation ---
History of Present Illness - Reason for Consult Consult date: 03/29/17 malnutrition, poor po intake, aspiration pneumonia Requesting physician: REBEKA HOUSTON - History of Present Illness Patient is a 81 y/o male with PMH of COPD, asthma, HTN, and dementia who presented to hospital with c/o generalized weakness. He is currently being treated for acute hypoxic hypercapnic respiratory failure, aspiration pneumonia with right sided pleural effusion (s/p thoracentesis), and dementia. GI has been consulted for malnutrition and poor PO intake. 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 This morning pt was resting in bed w/o acute distress. He is alert and pleasant but confused and unable to provide history. No family at bedside. History obtained via chart review. Denies any GI complaints such as abd pain or N/V. Past History Past Medical History: COPD, hypertension Past Surgical History: Other (couldn't obtained because of dementia.) Social history: other (couldn't obtained because of dementia.) Family history: other (couldn't obtained because of dementia.) Medications and Allergies Allergies Allergy/AdvReac Type Severity Reaction Status Date / Time Penicillins Allergy Hives Verified 03/23/17 17:55 Home Medications Medication Instructions Recorded Confirmed Last Taken Type ALBUTEROL NEB's [Proventil 0.083% 2.5 mg IH Q4HRT PRN #30 nebu 11/29/16 Unknown Rx NEBS] Bisacodyl [Dulcolax suppos] 10 mg VA QDAY PRN #30 supp.rect 11/29/16 03/23/17 Unknown Rx Cyanocobalamin [Vitamin B-12] 1,000 mcg PO QDAY #30 tablet 11/29/16 03/23/17 Unknown Rx Ferrous Sulfate [Feosol 325 MG tab] 325 mg PO BID #60 tablet 11/29/16 03/23/17 Unknown Rx HYDROcodone/APAP 5-325 [[place] 1 each PO Q6H PRN #30 tablet 11/29/16 03/23/17 Unknown Rx 5-325 mg TAB] Metoprolol [Lopressor TAB] 25 mg PO BID #60 tablet 11/29/16 03/23/17 Unknown Rx Active Meds: Active Medications Acetaminophen/Hydrocodone Bitart ([place] 5/325) 1 each PO Q6H PRN PRN Reason: Pain, Moderate (4-6) Last Admin: 03/26/17 21:43 Dose: 1 each Albuterol (Proventil) 2.5 mg IH Q4HRT PRN PRN Reason: Shortness Of Breath Last Admin: 03/26/17 19:32 Dose: 2.5 mg Albuterol/Ipratropium (Duoneb *Not For Prn Use*) 1 ampul IH QIDRT [facility] Last Admin: 03/29/17 09:37 Dose: 1 ampul Arformoterol Tartrate (Brovana Nebu) 15 mcg IH Q12HRT [facility] Last Admin: 03/29/17 09:37 Dose: 15 mcg Bisacodyl (Dulcolax) 10 mg VA QDAY PRN PRN Reason: Constipation unrelieved by MOM Budesonide (Pulmicort) 0.5 mg IH Q12HRT [facility] Last Admin: 03/29/17 09:37 Dose: 0.5 mg Cyanocobalamin (Vitamin B-12) 1,000 mcg PO QDAY [facility] Last Admin: 03/29/17 11:42 Dose: 1,000 mcg Ferrous Sulfate (Feosol) 325 mg PO BID [facility] Last Admin: 03/29/17 11:42 Dose: 325 mg Dextrose/Sodium Chloride (D5ns) 1,000 mls @ 75 mls/hr IV DIRECT [facility] Last Admin: 03/28/17 18:38 Dose: 50 mls/hr Clindamycin HCl (Cleocin 600 Mg/50 Ml) 600 mg in 50 mls @ 100 mls/hr IV Q8HR [facility] Last Admin: 03/29/17 05:35 Dose: 100 mls/hr Levofloxacin (Levaquin) 750 mg PO Q24H [facility] Last Admin: 03/28/17 13:53 Dose: Not Given Methylprednisolone Sodium Succinate (Solu-Medrol) 20 mg IV Q8H [facility] Last Admin: 03/29/17 05:35 Dose: 20 mg Review of Systems - Review of Systems ROS unobtainable: due to mental status Exam - Constitutional Vital Signs: Temp Pulse Resp BP Pulse Ox 97.3 F L 71 18 123/66 100 03/29/17 05:07 03/29/17 08:29 03/29/17 10:00 03/29/17 08:29 03/29/17 08:29 General appearance: no acute distress, other (thin appearing) - Respiratory Respiratory: bilateral: diminished (anterior) - Cardiovascular Rhythm: regular Heart Sounds: Present: S1 & S2 - Gastrointestinal General gastrointestinal: Present: soft, non-tender, non-distended, normal bowel sounds - Labs CBC & Chem 7: 03/28/17 05:27 03/28/17 05:27 Assessment and Plan 1.malnutrition 2.poor po intake 3.acute hypoxic hypercapnic respiratory failure 4.aspiration pneumonia 5.dementia -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
--- NOTE | 2017-03-29 11:56 | Cat Scan Report ---
CT chest without contrast: Followup pleural effusion. Transverse images are obtained through the chest with coronal and sagittal 2-D reformatted images. Comparison made to prior exam of March 24, 2017. There are moderate-sized bilateral pleural effusions slightly greater on the right than left. Pulmonary opacities are identified just above the right pleural effusion and to a lesser at the left effusion. An area of atelectasis extending from the pleural surface is also noted anteriorly in the right lung base. There is a stellate opacity in the left upper lobe. The visualized portions of the lungs appear generally hyperinflated and emphysematous. No pleural lesions identified. No hilar or mediastinal adenopathy appreciated. Compared to the prior examination the right pleural effusion has moderately decreased but the left pleural effusion has significantly increased. Osteoporosis with no focal lesion. Impressions: 1. Change in bilateral effusions as described. Etiology unclear. 2. Left upper lobe stellate opacity. Malignancy is a consideration. 3. Bilateral emphysematous changes.
--- NOTE | 2017-03-29 13:53 | Event Note ---
Date: 03/29/17 Patient off floor for echo
[2017-03-29] MEDS: LEVAQUIN PO SCH (14:24)
--- NOTE | 2017-03-29 17:18 | Progress Note ---
Assessment and Plan Assessment and plan: Acute hypoxic hypercapnic respiratory failure - Patient was treated with IV antibiotics, BiPAP - Currently saturating well - On prednsolone - Echo was done and pending reading Aspiration pneumonia, with right-sided pleural effusion -Patient is on IV Levaquin and clindamycin -Chest CT showed spiculated lesions -Pulmonary consult appreciated -Thoracentesis was done and about 1.3 L of yellow fluid was drained, transudative fluid Dementia - Supportive care Severe malnutrition - MBS use was done and patient is at risk of aspiration - GI consulted for evaluation for PEG placement DVT prophylaxis - Heparin Disposition - continue inpatient care Patient needs rehab but his families refused, given has severe malnutrition and some skin bruises patient doesn't look like he is getting proper care. I have discussed with lead case manager to be evaluated by APS. History Interval history: patient was seen and evaluated this morning, patient didn't complain fever, pain. Patient is demented. Hospitalist Physical - Physical exam Narrative exam: Not in cardiopulmonary distress. The patient is emaciated. Vital signs as documented. Head exam is unremarkable. No scleral icterus . Neck is without jugular venous distension, thyromegaly, or carotid bruits. Lungs creps on the right lower lung zone. Cardiac exam reveals regular rate and Rhythm. First and second heart sounds normal. No murmurs, rubs or gallops. Abdominal exam reveals normal bowel sounds, no masses, no organomegaly and no aortic enlargement. Extremities are nonedematous and both femoral and pedal pulses are normal. Skin some bruises all over. 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 - Constitutional Vitals: Temp Pulse Resp BP Pulse Ox 97.3 F L 71 18 123/66 100 03/29/17 05:07 03/29/17 08:29 03/29/17 10:00 03/29/17 08:29 03/29/17 08:29 Results - Labs CBC & Chem 7: 03/28/17 05:27 03/28/17 05:27 Labs: Laboratory Last Values WBC 9.2 K/mm3 (4.5-11.0) 03/28/17 05:27 RBC 4.00 M/mm3 (3.65-5.03) 03/28/17 05:27 Hgb 9.6 gm/dl (11.8-15.2) L 03/28/17 05:27 Hct 30.6 % (35.5-45.6) L 03/28/17 05:27 MCV 76 fl (84-94) L 03/28/17 05:27 MCH 24 pg (28-32) L 03/28/17 05:27 MCHC 32 % (32-34) 03/28/17 05:27 RDW 20.7 % (13.2-15.2) H 03/28/17 05:27 Plt Count 272 K/mm3 (140-440) 03/28/17 05:27 Lymph % (Auto) 6.3 % (13.4-35.0) L 03/25/17 05:59 [place] % (Auto) 9.9 % (0.0-7.3) H 03/25/17 05:59 Eos % (Auto) 0.1 % (0.0-4.3) 03/25/17 05:59 Baso % (Auto) 0.0 % (0.0-1.8) 03/25/17 05:59 Lymph # 0.4 K/mm3 (1.2-5.4) L 03/25/17 05:59 [place] # 0.7 K/mm3 (0.0-0.8) 03/25/17 05:59 Eos # 0.0 K/mm3 (0.0-0.4) 03/25/17 05:59 Baso # 0.0 K/mm3 (0.0-0.1) 03/25/17 05:59 Add Manual Diff Complete 03/28/17 05:27 Total Counted 100 03/28/17 05:27 Seg Neutrophils % 83.7 % (40.0-70.0) H 03/25/17 05:59 Seg Neuts % (Manual) 94.0 % (40.0-70.0) H 03/28/17 05:27 Band Neutrophils % 2.0 % 03/28/17 05:27 Lymphocytes % (Manual) 3.0 % (13.4-35.0) L 03/28/17 05:27 Reactive Lymphs % (Man) 0 % 03/28/17 05:27 Monocytes % (Manual) 0 % (0.0-7.3) 03/28/17 05:27 Eosinophils % (Manual) 1.0 % (0.0-4.3) 03/28/17 05:27 Basophils % (Manual) 0 % (0.0-1.8) 03/28/17 05:27 Metamyelocytes % 0 % 03/28/17 05:27 Myelocytes % 0 % 03/28/17 05:27 Promyelocytes % 0 % 03/28/17 05:27 Blast Cells % 0 % 03/28/17 05:27 Nucleated RBC % Not Reportable 03/28/17 05:27 Seg Neutrophils # 5.9 K/mm3 (1.8-7.7) 03/25/17 05:59 Seg Neutrophils # Man 8.6 K/mm3 (1.8-7.7) H 03/28/17 05:27 Band Neutrophils # 0.2 K/mm3 03/28/17 05:27 Lymphocytes # (Manual) 0.3 K/mm3 (1.2-5.4) L 03/28/17 05:27 Abs React Lymphs (Man) 0.0 K/mm3 03/28/17 05:27 Monocytes # (Manual) 0.0 K/mm3 (0.0-0.8) 03/28/17 05:27 Eosinophils # (Manual) 0.1 K/mm3 (0.0-0.4) 03/28/17 05:27 Basophils # (Manual) 0.0 K/mm3 (0.0-0.1) 03/28/17 05:27 Metamyelocytes # 0.0 K/mm3 03/28/17 05:27 Myelocytes # 0.0 K/mm3 03/28/17 05:27 Promyelocytes # 0.0 K/mm3 03/28/17 05:27 Blast Cells # 0.0 K/mm3 03/28/17 05:27 WBC Morphology Not Reportable 03/28/17 05:27 Hypersegmented Neuts Not Reportable 03/28/17 05:27 Hyposegmented Neuts Not Reportable 03/28/17 05:27 Hypogranular Neuts Not Reportable 03/28/17 05:27 Smudge Cells Not Reportable 03/28/17 05:27 Toxic Granulation Not Reportable 03/28/17 05:27 Toxic Vacuolation Not Reportable 03/28/17 05:27 Dohle Bodies Not Reportable 03/28/17 05:27 Pelger-Huet Anomaly Not Reportable 03/28/17 05:27 Star Rods Not Reportable 03/28/17 05:27 Platelet Estimate Appears normal 03/28/17 05:27 Clumped Platelets Not Reportable 03/28/17 05:27 Plt Clumps, EDTA Not Reportable 03/28/17 05:27 Large Platelets Not Reportable 03/28/17 05:27 Giant Platelets Not Reportable 03/28/17 05:27 Platelet Satelliting Not Reportable 03/28/17 05:27 Plt Morphology Comment Not Reportable 03/28/17 05:27 RBC Morphology Not Reportable 03/28/17 05:27 Dimorphic RBCs Not Reportable 03/28/17 05:27 Polychromasia Not Reportable 03/28/17 05:27 Hypochromasia 2+ 03/28/17 05:27 Poikilocytosis Not Reportable 03/28/17 05:27 Anisocytosis 1+ 03/28/17 05:27 Microcytosis Not Reportable 03/28/17 05:27 Macrocytosis Not Reportable 03/28/17 05:27 Spherocytes Not Reportable 03/28/17 05:27 Pappenheimer Bodies Not Reportable 03/28/17 05:27 Sickle Cells Not Reportable 03/28/17 05:27 Target Cells Not Reportable 03/28/17 05:27 Tear Drop Cells Not Reportable 03/28/17 05:27 Ovalocytes Not Reportable 03/28/17 05:27 Helmet Cells Not Reportable 03/28/17 05:27 [place] Bodies Not Reportable 03/28/17 05:27 Excello Rings Not Reportable 03/28/17 05:27 Epifanio Cells Not Reportable 03/28/17 05:27 Bite Cells Not Reportable 03/28/17 05:27 Crenated Cell Not Reportable 03/28/17 05:27 Elliptocytes Not Reportable 03/28/17 05:27 Acanthocytes (Spur) Not Reportable 03/28/17 05:27 Rouleaux Not Reportable 03/28/17 05:27 Hemoglobin C Crystals Not Reportable 03/28/17 05:27 Schistocytes Not Reportable 03/28/17 05:27 Malaria parasites Not Reportable 03/28/17 05:27 Valentin Bodies Not Reportable 03/28/17 05:27 Hem Pathologist Commnt No 03/28/17 05:27 PT 15.7 Sec. (12.2-14.9) H 03/26/17 10:14 INR 1.19 (0.87-1.13) H 03/26/17 10:14 POC ABG pH 7.397 (7.35-7.45) 03/24/17 16:02 POC ABG pCO2 61.3 (35-45) H 03/24/17 16:02 POC ABG pO2 85 (80-105) 03/24/17 16:02 POC ABG HCO3 37.7 03/24/17 16:02 POC ABG Total CO2 40 03/24/17 16:02 POC ABG O2 Sat 96 03/24/17 16:02 POC ABG Base Excess 13 03/24/17 16:02 FiO2 45 % 03/24/17 16:02 Sodium 145 mmol/L (137-145) 03/28/17 05:27 Potassium 4.2 mmol/L (3.6-5.0) 03/28/17 05:27 Chloride 103.9 mmol/L (98-107) 03/28/17 05:27 Carbon Dioxide 32 mmol/L (22-30) H 03/28/17 05:27 Anion Gap 13 mmol/L 03/28/17 05:27 BUN 35 mg/dL (9-20) H 03/28/17 05:27 Creatinine 0.7 mg/dL (0.8-1.5) L 03/28/17 05:27 Estimated GFR > 60 ml/min 03/28/17 05:27 BUN/Creatinine Ratio 50 % 03/28/17 05:27 Glucose 61 mg/dL (75-100) L 03/28/17 05:27 POC Glucose 83 (70-105) 03/24/17 01:11 Lactic Acid 1.20 mmol/L (0.7-2.0) 03/24/17 00:01 Calcium 8.2 mg/dL (8.4-10.2) L 03/28/17 05:27 Magnesium 2.20 mg/dL (1.7-2.3) 03/24/17 00:01 Total Creatine Kinase 25 units/L (55-170) L 03/24/17 00:01 CK-MB (CK-2) 3.8 ng/mL (0.0-4.0) 03/24/17 00:01 CK-MB (CK-2) Rel Index 15.2 (0-4) H 03/24/17 00:01 Troponin T 0.015 ng/mL (0.00-0.029) 03/24/17 00:01 NT-Pro-B Natriuret Pep 6340 pg/mL (0-900) H 03/24/17 00:01 Urine Color Yellow (Yellow) 03/24/17 01:29 Urine Turbidity Clear (Clear) 03/24/17 01:29 Urine pH 5.0 (5.0-7.0) 03/24/17 01:29 Ur Specific [place] 1.024 (1.003-1.030) 03/24/17 01:29 Urine Protein 30 mg/dl mg/dL (Negative) 03/24/17 01:29 Urine Glucose (UA) Neg mg/dL (Negative) 03/24/17 01:29 Urine Ketones Neg mg/dL (Negative) 03/24/17 01:29 Urine Blood Sm (Negative) 03/24/17 01:29 Urine Nitrite Neg (Negative) 03/24/17 01:29 Urine Bilirubin Neg (Negative) 03/24/17 01:29 Urine Urobilinogen 2.0 mg/dL (<2.0) 03/24/17 01:29 Ur Leukocyte Esterase Neg (Negative) 03/24/17 01:29 Urine WBC (Auto) 2.0 /HPF (0.0-6.0) 03/24/17 01:29 Urine RBC (Auto) 44.0 /HPF (0.0-6.0) 03/24/17 01:29 Hyaline Casts 38 /LPF 03/24/17 01:29 Granular Casts 7 /LPF 03/24/17 01:29 Urine Mucus Few /HPF 03/24/17 01:29 Fluid Type Pleural 03/26/17 13:45 Fluid Color Yellow 03/26/17 13:45 Fluid Appearance Cloudy 03/26/17 13:45 Fluid WBC 267 /mm3 03/26/17 13:45 Fluid RBC 577 /mm3 03/26/17 13:45 Fluid Diff Comment 03/26/17 13:45 Fluid Seg Neutrophils 49.0 % 03/26/17 13:45 Fluid Lymphocytes 41.0 % 03/26/17 13:45 Fluid Reactive Lymphs 0 % 03/26/17 13:45 Fluid Monocytes 10.0 % 03/26/17 13:45 Fluid Eosinophils 0 % 03/26/17 13:45 Fluid Basophils 0 % 03/26/17 13:45 Fluid Glucose 88 mg/dL (40-70) H 03/26/17 13:45 Fluid Total Protein < 3.0 (15.0-45.0) L 03/24/17 13:45 Fluid LDH 232 03/26/17 13:45
[2017-03-29] MEDS: D5NS 1,000 ML IV SCH (22:07)
[2017-03-30 06:41] LABS: INR 1.16 (0.87-1.13)
[2017-03-30] MEDS: CLEOCIN 600 MG/50 mL 600 MG/50 ML BAG IV SCH ×3 (06:43→21:48)
[2017-03-30] MEDS: BROVANA NEBU IH SCH ×2 (08:00→21:34)
--- NOTE | 2017-03-30 08:54 | Event Note ---
Date: 03/30/[address] David boogie to proceed with PEG placement. Will schedule for EGD/PEG today.
[2017-03-30] MEDS ORDERED: LEVAQUIN PO SCH ×2 (09:00)
[2017-03-30] MEDS: VITAMIN B-12 PO SCH (10:00)
[2017-03-30] MEDS: FEOSOL PO SCH ×2 (10:00→21:48)
[2017-03-30] MEDS: PULMICORT IH SCH ×2 (10:09→21:34)
[2017-03-30] MEDS: DUONEB *Not for PRN Use IH SCH ×4 (10:10→21:59)
--- NOTE | 2017-03-30 12:48 | Progress Note ---
Assessment and Plan 81 y/o male with acute respiratory failure, abnormal CT scan with right sided pleural effusion and upper lobe spiculated lesions and diffuse emphysema. 1. NO PFT's on record or at our office. Patient has COPD and chronic respiratory failure. He has improved clinically from a breathing standpoint and significantly after draining of the pleural effusion. Without knowing his PFT's, tough to say exact risk. But given Age and Comorbidities with current diagnosis, he is likely a mild-moderate risk for pulmonary complication from PEG placement. If benefits outweigh the risk, proceed with EGD and peg placement. 2. Pulmonary will continue to follow 3. Continue pulmicort and brovana BID 4. Continue IV steroids 5. Suggest giving lasix again tonight after procedure. Subjective Date of service: 03/30/17 Interval history: no acute events. Scheduled for PEG today. GI concern about pulmonary risk factors. Presently stable. Wants food and water. Objective Vital Signs - 12hr 03/30/17 03/30/17 03/30/17 01:02 04:57 07:18 Temperature 97.4 F L 97.4 F L 97.5 F L Pulse Rate 84 82 72 Pulse Rate [ Anterior Throughout] Pulse Rate [ From Monitor] Respiratory 20 18 18 Rate Respiratory Rate [Anterior Throughout] Blood Pressure 130/68 Blood Pressure 130/69 145/75 [Left] O2 Sat by Pulse 91 96 96 Oximetry 03/30/17 03/30/17 03/30/17 10:00 10:05 10:14 Temperature Pulse Rate Pulse Rate [ 66 67 Anterior Throughout] Pulse Rate [ 74 From Monitor] Respiratory 18 Rate Respiratory 16 16 Rate [Anterior Throughout] Blood Pressure Blood Pressure [Left] O2 Sat by Pulse 94 Oximetry 03/30/17 11:25 Temperature 97.3 F L Pulse Rate 78 Pulse Rate [ Anterior Throughout] Pulse Rate [ From Monitor] Respiratory 20 Rate Respiratory Rate [Anterior Throughout] Blood Pressure Blood Pressure 126/71 [Left] O2 Sat by Pulse 88 Oximetry Constitutional: no acute distress, alert Eyes: non-icteric ENT: oropharynx moist Neck: supple Effort: normal Ascultation: Bilateral: rhonchi (rare) Cardiovascular: regular rate and rhythm Gastrointestinal: normoactive bowel sounds, soft, non-tender, non-distended CBC and BMP: 03/28/17 05:27 03/28/17 05:27 ABG, PT/INR, D-dimer: ABG POC ABG pH 7.397 (7.35-7.45) 03/24/17 16:02 POC ABG pCO2 61.3 (35-45) H 03/24/17 16:02 POC ABG pO2 85 (80-105) 03/24/17 16:02 POC ABG HCO3 37.7 03/24/17 16:02 POC ABG Total CO2 40 03/24/17 16:02 POC ABG O2 Sat 96 03/24/17 16:02 PT/INR, D-dimer PT 15.4 Sec. (12.2-14.9) H 03/30/17 05:58 INR 1.16 (0.87-1.13) H 03/30/17 05:58 Abnormal lab findings: Abnormal Labs 03/23/17 03/23/17 03/24/17 22:52 23:19 00:01 Hgb 11.7 L Hct MCV 77 L MCH 25 L MCHC RDW 21.1 H Lymph % (Auto) 6.5 L [place] % (Auto) 11.8 H Lymph # 0.5 L [place] # 0.9 H Seg Neutrophils % 81.5 H Seg Neuts % (Manual) Lymphocytes % (Manual) Seg Neutrophils # Man Lymphocytes # (Manual) PT INR POC ABG pH 7.324 L 7.331 L POC ABG pCO2 72.2 H 69.4 H POC ABG pO2 39 L 33 L Sodium Potassium Chloride Carbon Dioxide BUN Creatinine Glucose Calcium Total Creatine Kinase CK-MB (CK-2) Rel Index NT-Pro-B Natriuret Pep Fluid Glucose Fluid Total Protein 03/24/17 03/24/17 03/24/17 00:01 09:44 13:45 Hgb Hct MCV MCH MCHC RDW Lymph % (Auto) [place] % (Auto) Lymph # [place] # Seg Neutrophils % Seg Neuts % (Manual) Lymphocytes % (Manual) Seg Neutrophils # Man Lymphocytes # (Manual) PT INR POC ABG pH 7.300 L POC ABG pCO2 80.4 H POC ABG pO2 114 H Sodium Potassium 5.2 H Chloride 97.7 L Carbon Dioxide BUN 32 H Creatinine 0.5 L Glucose 68 L Calcium Total Creatine Kinase 25 L CK-MB (CK-2) Rel Index 15.2 H NT-Pro-B Natriuret Pep 6340 H Fluid Glucose Fluid Total Protein < 3.0 L 03/24/17 03/25/17 03/25/17 16:02 05:59 05:59 Hgb 9.0 L Hct 30.2 L D MCV 77 L MCH 24 L MCHC 31 L RDW 20.5 H Lymph % (Auto) 6.3 L [place] % (Auto) 9.9 H Lymph # 0.4 L [place] # Seg Neutrophils % 83.7 H Seg Neuts % (Manual) Lymphocytes % (Manual) Seg Neutrophils # Man Lymphocytes # (Manual) PT INR POC ABG pH POC ABG pCO2 61.3 H POC ABG pO2 Sodium 146 H Potassium Chloride Carbon Dioxide 36 H BUN 28 H Creatinine 0.5 L Glucose Calcium Total Creatine Kinase CK-MB (CK-2) Rel Index NT-Pro-B Natriuret Pep Fluid Glucose Fluid Total Protein 03/26/17 03/26/17 03/26/17 10:04 10:04 10:14 Hgb 9.4 L Hct 29.5 L MCV 77 L MCH 24 L MCHC RDW 20.8 H Lymph % (Auto) [place] % (Auto) Lymph # [place] # Seg Neutrophils % Seg Neuts % (Manual) Lymphocytes % (Manual) Seg Neutrophils # Man Lymphocytes # (Manual) PT 15.7 H INR 1.19 H POC ABG pH POC ABG pCO2 POC ABG pO2 Sodium Potassium Chloride Carbon Dioxide 33 H BUN 28 H Creatinine 0.5 L Glucose Calcium 8.1 L Total Creatine Kinase CK-MB (CK-2) Rel Index NT-Pro-B Natriuret Pep Fluid Glucose Fluid Total Protein 03/26/17 03/27/17 03/28/17 13:45 07:18 05:27 Hgb 9.3 L 9.6 L Hct 29.8 L 30.6 L MCV 77 L 76 L MCH 24 L 24 L MCHC 31 L RDW 20.8 H 20.7 H Lymph % (Auto) [place] % (Auto) Lymph # [place] # Seg Neutrophils % Seg Neuts % (Manual) 94.0 H Lymphocytes % (Manual) 3.0 L Seg Neutrophils # Man 8.6 H Lymphocytes # (Manual) 0.3 L PT INR POC ABG pH POC ABG pCO2 POC ABG pO2 Sodium Potassium Chloride Carbon Dioxide BUN Creatinine Glucose Calcium Total Creatine Kinase CK-MB (CK-2) Rel Index NT-Pro-B Natriuret Pep Fluid Glucose 88 H Fluid Total Protein 03/28/17 03/30/17 05:27 05:58 Hgb Hct MCV MCH MCHC RDW Lymph % (Auto) [place] % (Auto) Lymph # [place] # Seg Neutrophils % Seg Neuts % (Manual) Lymphocytes % (Manual) Seg Neutrophils # Man Lymphocytes # (Manual) PT 15.4 H INR 1.16 H POC ABG pH POC ABG pCO2 POC ABG pO2 Sodium Potassium Chloride Carbon Dioxide 32 H BUN 35 H Creatinine 0.7 L Glucose 61 L Calcium 8.2 L Total Creatine Kinase CK-MB (CK-2) Rel Index NT-Pro-B Natriuret Pep Fluid Glucose Fluid Total Protein
[2017-03-30] MEDS ORDERED: GARAMYCIN 80 MG in NACL 0.9% 100 ML IV SCH (15:15)
[2017-03-30] MEDS ORDERED: NACL 0.9% 1000 ML 1,000 ML IV SCH (16:00)
[2017-03-30] MEDS ORDERED: CLEOCIN 600 MG/50 mL 600 MG/50 ML BAG IV NR (16:00)
--- NOTE | 2017-03-30 17:14 | Progress Note ---
Assessment and Plan Assessment and plan: Acute hypoxic hypercapnic respiratory failure - Patient was treated with IV antibiotics, BiPAP - Currently saturating well - On prednsolone Acute systolic CHF - Patient is on IV Lasix 20 mg daily - Patient is started on lisinopril and metoprolol low-dose Aspiration pneumonia, with right-sided pleural effusion -Patient is on IV Levaquin and clindamycin -Chest CT showed spiculated lesions -Pulmonary consult appreciated -Thoracentesis was done and about 1.3 L of yellow fluid was drained, transudative fluid Dementia - Supportive care Severe malnutrition - MBS use was done and patient is at risk of aspiration - PEG is going to be placed today DVT prophylaxis - Heparin Disposition - Patient will be discharged to hospice tomorrow. History Interval history: patient was seen and evaluated this morning, patient didn't complain fever, pain. Patient is demented.No family member was in the room. CM have discussed with his son and he wants hospice care. will be arranged tomorrow. Hospitalist Physical - Physical exam Narrative exam: Not in cardiopulmonary distress. The patient is emaciated. Vital signs as documented. Head exam is unremarkable. No scleral icterus . Neck is without jugular venous distension, thyromegaly, or carotid bruits. Lungs creps on the right lower lung zone. Cardiac exam reveals regular rate and Rhythm. First and second heart sounds normal. No murmurs, rubs or gallops. Abdominal exam reveals normal bowel sounds, no masses, no organomegaly and no aortic enlargement. Extremities are nonedematous and both femoral and pedal pulses are normal. Skin some bruises all over. LANDSCAPE SPECIALIST: Alert and demented. - Constitutional Vitals: Temp Pulse Resp BP Pulse Ox 97.5 F L 78 15 143/81 94 03/30/17 15:20 03/30/17 15:20 03/30/17 15:20 03/30/17 15:20 03/30/17 15:20 Results - Labs CBC & Chem 7: 03/28/17 05:27 03/28/17 05:27 Labs: Laboratory Last Values WBC 9.2 K/mm3 (4.5-11.0) 03/28/17 05:27 RBC 4.00 M/mm3 (3.65-5.03) 03/28/17 05:27 Hgb 9.6 gm/dl (11.8-15.2) L 03/28/17 05:27 Hct 30.6 % (35.5-45.6) L 03/28/17 05:27 MCV 76 fl (84-94) L 03/28/17 05:27 MCH 24 pg (28-32) L 03/28/17 05:27 MCHC 32 % (32-34) 03/28/17 05:27 RDW 20.7 % (13.2-15.2) H 03/28/17 05:27 Plt Count 272 K/mm3 (140-440) 03/28/17 05:27 Lymph % (Auto) 6.3 % (13.4-35.0) L 03/25/17 05:59 Howard % (Auto) 9.9 % (0.0-7.3) H 03/25/17 05:59 Eos % (Auto) 0.1 % (0.0-4.3) 03/25/17 05:59 Baso % (Auto) 0.0 % (0.0-1.8) 03/25/17 05:59 Lymph # 0.4 K/mm3 (1.2-5.4) L 03/25/17 05:59 Howard # 0.7 K/mm3 (0.0-0.8) 03/25/17 05:59 Eos # 0.0 K/mm3 (0.0-0.4) 03/25/17 05:59 Baso # 0.0 K/mm3 (0.0-0.1) 03/25/17 05:59 Add Manual Diff Complete 03/28/17 05:27 Total Counted 100 03/28/17 05:27 Seg Neutrophils % 83.7 % (40.0-70.0) H 03/25/17 05:59 Seg Neuts % (Manual) 94.0 % (40.0-70.0) H 03/28/17 05:27 Band Neutrophils % 2.0 % 03/28/17 05:27 Lymphocytes % (Manual) 3.0 % (13.4-35.0) L 03/28/17 05:27 Reactive Lymphs % (Man) 0 % 03/28/17 05:27 Monocytes % (Manual) 0 % (0.0-7.3) 03/28/17 05:27 Eosinophils % (Manual) 1.0 % (0.0-4.3) 03/28/17 05:27 Basophils % (Manual) 0 % (0.0-1.8) 03/28/17 05:27 Metamyelocytes % 0 % 03/28/17 05:27 Myelocytes % 0 % 03/28/17 05:27 Promyelocytes % 0 % 03/28/17 05:27 Blast Cells % 0 % 03/28/17 05:27 Nucleated RBC % Not Reportable 03/28/17 05:27 Seg Neutrophils # 5.9 K/mm3 (1.8-7.7) 03/25/17 05:59 Seg Neutrophils # Man 8.6 K/mm3 (1.8-7.7) H 03/28/17 05:27 Band Neutrophils # 0.2 K/mm3 03/28/17 05:27 Lymphocytes # (Manual) 0.3 K/mm3 (1.2-5.4) L 03/28/17 05:27 Abs React Lymphs (Man) 0.0 K/mm3 03/28/17 05:27 Monocytes # (Manual) 0.0 K/mm3 (0.0-0.8) 03/28/17 05:27 Eosinophils # (Manual) 0.1 K/mm3 (0.0-0.4) 03/28/17 05:27 Basophils # (Manual) 0.0 K/mm3 (0.0-0.1) 03/28/17 05:27 Metamyelocytes # 0.0 K/mm3 03/28/17 05:27 Myelocytes # 0.0 K/mm3 03/28/17 05:27 Promyelocytes # 0.0 K/mm3 03/28/17 05:27 Blast Cells # 0.0 K/mm3 03/28/17 05:27 WBC Morphology Not Reportable 03/28/17 05:27 Hypersegmented Neuts Not Reportable 03/28/17 05:27 Hyposegmented Neuts Not Reportable 03/28/17 05:27 Hypogranular Neuts Not Reportable 03/28/17 05:27 Smudge Cells Not Reportable 03/28/17 05:27 Toxic Granulation Not Reportable 03/28/17 05:27 Toxic Vacuolation Not Reportable 03/28/17 05:27 Dohle Bodies Not Reportable 03/28/17 05:27 Pelger-Huet Anomaly Not Reportable 03/28/17 05:27 Star Rods Not Reportable 03/28/17 05:27 Platelet Estimate Appears normal 03/28/17 05:27 Clumped Platelets Not Reportable 03/28/17 05:27 Plt Clumps, EDTA Not Reportable 03/28/17 05:27 Large Platelets Not Reportable 03/28/17 05:27 Giant Platelets Not Reportable 03/28/17 05:27 Platelet Satelliting Not Reportable 03/28/17 05:27 Plt Morphology Comment Not Reportable 03/28/17 05:27 RBC Morphology Not Reportable 03/28/17 05:27 Dimorphic RBCs Not Reportable 03/28/17 05:27 Polychromasia Not Reportable 03/28/17 05:27 Hypochromasia 2+ 03/28/17 05:27 Poikilocytosis Not Reportable 03/28/17 05:27 Anisocytosis 1+ 03/28/17 05:27 Microcytosis Not Reportable 03/28/17 05:27 Macrocytosis Not Reportable 03/28/17 05:27 Spherocytes Not Reportable 03/28/17 05:27 Pappenheimer Bodies Not Reportable 03/28/17 05:27 Sickle Cells Not Reportable 03/28/17 05:27 Target Cells Not Reportable 03/28/17 05:27 Tear Drop Cells Not Reportable 03/28/17 05:27 Ovalocytes Not Reportable 03/28/17 05:27 Helmet Cells Not Reportable 03/28/17 05:27 Av[place] Bodies Not Reportable 03/28/17 05:27 [place] Rings Not Reportable 03/28/17 05:27 [place] Cells Not Reportable 03/28/17 05:27 Bite Cells Not Reportable 03/28/17 05:27 Crenated Cell Not Reportable 03/28/17 05:27 Elliptocytes Not Reportable 03/28/17 05:27 Acanthocytes (Spur) Not Reportable 03/28/17 05:27 Rouleaux Not Reportable 03/28/17 05:27 Hemoglobin C Crystals Not Reportable 03/28/17 05:27 Schistocytes Not Reportable 03/28/17 05:27 Malaria parasites Not Reportable 03/28/17 05:27 Valentin Bodies Not Reportable 03/28/17 05:27 Hem Pathologist Commnt No 03/28/17 05:27 PT 15.4 Sec. (12.2-14.9) H 03/30/17 05:58 INR 1.16 (0.87-1.13) H 03/30/17 05:58 POC ABG pH 7.397 (7.35-7.45) 03/24/17 16:02 POC ABG pCO2 61.3 (35-45) H 03/24/17 16:02 POC ABG pO2 85 (80-105) 03/24/17 16:02 POC ABG HCO3 37.7 03/24/17 16:02 POC ABG Total CO2 40 03/24/17 16:02 POC ABG O2 Sat 96 03/24/17 16:02 POC ABG Base Excess 13 03/24/17 16:02 FiO2 45 % 03/24/17 16:02 Sodium 145 mmol/L (137-145) 03/28/17 05:27 Potassium 4.2 mmol/L (3.6-5.0) 03/28/17 05:27 Chloride 103.9 mmol/L (98-107) 03/28/17 05:27 Carbon Dioxide 32 mmol/L (22-30) H 03/28/17 05:27 Anion Gap 13 mmol/L 03/28/17 05:27 BUN 35 mg/dL (9-20) H 03/28/17 05:27 Creatinine 0.7 mg/dL (0.8-1.5) L 03/28/17 05:27 Estimated GFR > 60 ml/min 03/28/17 05:27 BUN/Creatinine Ratio 50 % 03/28/17 05:27 Glucose 61 mg/dL (75-100) L 03/28/17 05:27 POC Glucose 83 (70-105) 03/24/17 01:11 Lactic Acid 1.20 mmol/L (0.7-2.0) 03/24/17 00:01 Calcium 8.2 mg/dL (8.4-10.2) L 03/28/17 05:27 Magnesium 2.20 mg/dL (1.7-2.3) 03/24/17 00:01 Total Creatine Kinase 25 units/L (55-170) L 03/24/17 00:01 CK-MB (CK-2) 3.8 ng/mL (0.0-4.0) 03/24/17 00:01 CK-MB (CK-2) Rel Index 15.2 (0-4) H 03/24/17 00:01 Troponin T 0.015 ng/mL (0.00-0.029) 03/24/17 00:01 NT-Pro-B Natriuret Pep 6340 pg/mL (0-900) H 03/24/17 00:01 Urine Color Yellow (Yellow) 03/24/17 01:29 Urine Turbidity Clear (Clear) 03/24/17 01: Urine pH 5.0 (5.0-7.0) 03/24/17 01:29 Ur Specific [place] 1.024 (1.003-1.030) 03/24/17 01:29 Urine Protein 30 mg/dl mg/dL (Negative) 03/24/17 01:29 Urine Glucose (UA) Neg mg/dL (Negative) 03/24/17 01:29 Urine Ketones Neg mg/dL (Negative) 03/24/17 01:29 Urine Blood Sm (Negative) 03/24/17 01:29 Urine Nitrite Neg (Negative) 03/24/17 01:29 Urine Bilirubin Neg (Negative) 03/24/17 01: Urine Urobilinogen 2.0 mg/dL (<2.0) 03/24/17 01:29 Ur Leukocyte Esterase Neg (Negative) 03/24/17 01:29 Urine WBC (Auto) 2.0 /HPF (0.0-6.0) 03/24/17 01:29 Urine RBC (Auto) 44.0 /HPF (0.0-6.0) 03/24/17 01:29 Hyaline Casts 38 /LPF 03/24/17 01:29 Granular Casts 7 /LPF 03/24/17 01:29 Urine Mucus Few /HPF 03/24/17 01:29 Fluid Type Pleural 03/26/17 13:45 Fluid Color Yellow 03/26/17 13:45 Fluid Appearance Cloudy 03/26/17 13:45 Fluid WBC 267 /mm3 03/26/17 13:45 Fluid RBC 577 /mm3 03/26/17 13:45 Fluid Diff Comment 03/26/17 13:45 Fluid Seg Neutrophils 49.0 % 03/26/17 13:45 Fluid Lymphocytes 41.0 % 03/26/17 13:45 Fluid Reactive Lymphs 0 % 03/26/17 13:45 Fluid Monocytes 10.0 % 03/26/17 13:45 Fluid Eosinophils 0 % 03/26/17 13:45 Fluid Basophils 0 % 03/26/17 13:45 Fluid Glucose 88 mg/dL (40-70) H 03/26/17 13:45 Fluid Total Protein < 3.0 (15.0-45.0) L 03/24/17 13:45 Fluid LDH 232 03/26/17 13:45
[2017-03-30] MEDS: LEVAQUIN 750MG/150ML 750 MG/150 ML BAG IV SCH (17:42)
[2017-03-30] MEDS ORDERED: LASIX IV ONE ×3 (18:00→22:00)
--- NOTE | 2017-03-30 19:47 | Event Note ---
Date: 03/30/17 - unable to place peg today - will plan to reschedule for am
[2017-03-30] MEDS: LOPRESSOR PO SCH (21:47)
[2017-03-31] MEDS: D5NS 1,000 ML IV SCH (04:26)
[2017-03-31] MEDS: CLEOCIN 600 MG/50 mL 600 MG/50 ML BAG IV SCH ×3 (06:39→21:17)
[2017-03-31] MEDS: BROVANA NEBU IH SCH ×3 (07:48→21:02)
[2017-03-31] MEDS: PULMICORT IH SCH ×3 (07:48→21:04)
[2017-03-31] MEDS: DUONEB *Not for PRN Use IH SCH ×4 (07:48→19:19)
[2017-03-31] MEDS ORDERED: XYLOCAINE MPF 2% ONE (09:00)
[2017-03-31] MEDS ORDERED: NACL 0.9% 1000 ML 1,000 ML ONE (09:01)
[2017-03-31] MEDS ORDERED: DIPRIVAN 10 MG/ML IV ONE (10:01)
--- NOTE | 2017-03-31 10:02 | Anesthesia Consultation ---
Anesthesia Consult and Med Hx Date of service: 03/31/17 - Airway Anesthetic Teeth Evaluation: Edentulous ROM Head & Neck: Inadequate Mental/Hyoid Distance: Adequate Mallampati Class: Class I Intubation Access Assessment: Probably Good - Pulmonary Exam CTA: Yes - Cardiac Exam Cardiac Exam: RRR - Pre-Operative Health Status ASA Pre-Surgery Classification: ASA4 Proposed Anesthetic Plan: MAC - Pulmonary Hx Smoking: Yes (2 ppd) Hx Asthma: Yes COPD: Yes (severe, not on home o2) - Cardiovascular System Hx Hypertension: Yes (not presently on meds) - Central Nervous System Hx Psychiatric Problems: No - Hematic Hx Anemia: Yes
--- NOTE | 2017-03-31 10:05 | Anesthesia Day of Surgery ---
Anesthesia Day of Surgery - Day of Surgery Patient Examined: Yes Patient H&P Reviewed: Yes Patient is NPO: Yes Beta Blockers: Yes Cardiac Clearance: Yes Pulmonary Clearance: Yes Shane's Test: N/A
--- NOTE | 2017-03-31 10:21 | Post Anesthesia Evaluation ---
- Post Anesthesia Evaluation Patient Participated: Yes Airway Patent: Yes Stable Respiratory Function: Yes Nausea/Vomiting: No Temp > 96.8F: Yes Pain Manageable: Yes Adequeate Hydration: Yes Anesthesia Complications: No Block Receding Appropriately: Not Applicable
--- NOTE | 2017-03-31 10:27 | Post Operative Note ---
Pre-op diagnosis: Aspiration pneumonia Post-op diagnosis: other (Duodenitis, successful G-tube placement) Findings: 1. Moderate erosive duodenitis 2. Successful 20Fr G-tube placement Procedure: EGD/PEG Anesthesia: MAC Surgeon: FRANKY DIANA Estimated blood loss: minimal Pathology: none Condition: stable Disposition: floor (May initiate TF in 4 hours)
[2017-03-31] MEDS ORDERED: SODIUM BICARBONATE FEEDTUBE PRN ×2 (12:44→13:00)
[2017-03-31] MEDS ORDERED: SIMPLE SYRUP FEEDTUBE PRN ×4 (12:44→13:00)
[2017-03-31] MEDS ORDERED: PANCREAZE DR 10,500 UNIT FEEDTUBE PRN ×2 (12:44→13:00)
[2017-03-31] MEDS: LEVAQUIN 750MG/150ML 750 MG/150 ML BAG IV SCH (13:04)
--- NOTE | 2017-03-31 14:44 | Progress Note ---
Assessment and Plan 81 y/o male with acute respiratory failure, abnormal CT scan with right sided pleural effusion and upper lobe spiculated lesions and diffuse emphysema. 1. Pulmonary will continue to follow 2. Continue pulmicort and brovana BID 3. Continue IV steroids, can switch to Prednisone 40 when able to use Peg tube 4. Will give lasix today. Subjective Date of service: 03/31/17 Interval history: No acute events. Had EGD and peg placed this am. Objective Vital Signs - 12hr 03/31/17 03/31/17 03/31/17 04:00 05:04 07:07 Temperature 97.3 F L 97.2 F L Pulse Rate 62 63 Pulse Rate [ Anterior Throughout] Respiratory 20 18 Rate Respiratory Rate [Anterior Throughout] Blood Pressure 116/59 124/68 Blood Pressure 116/59 [Left] O2 Sat by Pulse 98 97 89 Oximetry 03/31/17 03/31/17 03/31/17 08:00 08:15 08:50 Temperature 98.7 F Pulse Rate 81 Pulse Rate [ 76 103 H Anterior Throughout] Respiratory 20 Rate Respiratory 18 18 Rate [Anterior Throughout] Blood Pressure 130/68 Blood Pressure [Left] O2 Sat by Pulse 98 Oximetry 03/31/17 03/31/17 03/31/17 09:06 10:00 10:17 Temperature 97.2 F L 98.2 F Pulse Rate 81 76 Pulse Rate [ Anterior Throughout] Respiratory 18 12 Rate Respiratory Rate [Anterior Throughout] Blood Pressure 132/73 Blood Pressure 124/68 [Left] O2 Sat by Pulse 97 96 98 Oximetry 03/31/17 03/31/17 03/31/17 10:31 10:32 10:47 Temperature 97.2 F L Pulse Rate 81 70 76 Pulse Rate [ Anterior Throughout] Respiratory 18 15 Rate Respiratory Rate [Anterior Throughout] Blood Pressure 130/68 130/74 Blood Pressure [Left] O2 Sat by Pulse 97 95 Oximetry Constitutional: no acute distress, alert Eyes: non-icteric ENT: oropharynx moist Neck: supple Effort: normal Ascultation: Bilateral: rhonchi (rare) Cardiovascular: regular rate and rhythm Gastrointestinal: normoactive bowel sounds, soft, non-tender, non-distended CBC and BMP: 03/28/17 05:27 03/28/17 05:27 ABG, PT/INR, D-dimer: ABG POC ABG pH 7.397 (7.35-7.45) 03/24/17 16:02 POC ABG pCO2 61.3 (35-45) H 03/24/17 16:02 POC ABG pO2 85 (80-105) 03/24/17 16:02 POC ABG HCO3 37.7 03/24/17 16:02 POC ABG Total CO2 40 03/24/17 16:02 POC ABG O2 Sat 96 03/24/17 16:02 PT/INR, D-dimer PT 15.4 Sec. (12.2-14.9) H 03/30/17 05:58 INR 1.16 (0.87-1.13) H 03/30/17 05:58 Abnormal lab findings: Abnormal Labs 03/23/17 03/23/17 03/24/17 22:52 23:19 00:01 Hgb 11.7 L Hct MCV 77 L MCH 25 L MCHC RDW 21.1 H Lymph % (Auto) 6.5 L [place] % (Auto) 11.8 H Lymph # 0.5 L [place] # 0.9 H Seg Neutrophils % 81.5 H Seg Neuts % (Manual) Lymphocytes % (Manual) Seg Neutrophils # Man Lymphocytes # (Manual) PT INR POC ABG pH 7.324 L 7.331 L POC ABG pCO2 72.2 H 69.4 H POC ABG pO2 39 L 33 L Sodium Potassium Chloride Carbon Dioxide BUN Creatinine Glucose Calcium Total Creatine Kinase CK-MB (CK-2) Rel Index NT-Pro-B Natriuret Pep Fluid Glucose Fluid Total Protein 03/24/17 03/24/17 03/24/17 00:01 09:44 13:45 Hgb Hct MCV MCH MCHC RDW Lymph % (Auto) [place] % (Auto) Lymph # [place] # Seg Neutrophils % Seg Neuts % (Manual) Lymphocytes % (Manual) Seg Neutrophils # Man Lymphocytes # (Manual) PT INR POC ABG pH 7.300 L POC ABG pCO2 80.4 H POC ABG pO2 114 H Sodium Potassium 5.2 H Chloride 97.7 L Carbon Dioxide BUN 32 H Creatinine 0.5 L Glucose 68 L Calcium Total Creatine Kinase 25 L CK-MB (CK-2) Rel Index 15.2 H NT-Pro-B Natriuret Pep 6340 H Fluid Glucose Fluid Total Protein < 3.0 L 03/24/17 03/25/1703/25/18 16:02 05:59 05:59 Hgb 9.0 L Hct 30.2 L D MCV 77 L MCH 24 L MCHC 31 L RDW 20.5 H Lymph % (Auto) 6.3 L [place] % (Auto) 9.9 H Lymph # 0.4 L [place] # Seg Neutrophils % 83.7 H Seg Neuts % (Manual) Lymphocytes % (Manual) Seg Neutrophils # Man Lymphocytes # (Manual) PT INR POC ABG pH POC ABG pCO2 61.3 H POC ABG pO2 Sodium 146 H Potassium Chloride Carbon Dioxide 36 H BUN 28 H Creatinine 0.5 L Glucose Calcium Total Creatine Kinase CK-MB (CK-2) Rel Index NT-Pro-B Natriuret Pep Fluid Glucose Fluid Total Protein 03/26/17 03/26/17 03/26/17 10:04 10:04 10:14 Hgb 9.4 L Hct 29.5 L MCV 77 L MCH 24 L MCHC RDW 20.8 H Lymph % (Auto) [place] % (Auto) Lymph # [place] # Seg Neutrophils % Seg Neuts % (Manual) Lymphocytes % (Manual) Seg Neutrophils # Man Lymphocytes # (Manual) PT 15.7 H INR 1.19 H POC ABG pH POC ABG pCO2 POC ABG pO2 Sodium Potassium Chloride Carbon Dioxide 33 H BUN 28 H Creatinine 0.5 L Glucose Calcium 8.1 L Total Creatine Kinase CK-MB (CK-2) Rel Index NT-Pro-B Natriuret Pep Fluid Glucose Fluid Total Protein 03/26/17 03/27/17 03/28/17 13:45 07:18 05:27 Hgb 9.3 L 9.6 L Hct 29.8 L 30.6 L MCV 77 L 76 L MCH 24 L 24 L MCHC 31 L RDW 20.8 H 20.7 H Lymph % (Auto) [place] % (Auto) Lymph # [place] # Seg Neutrophils % Seg Neuts % (Manual) 94.0 H Lymphocytes % (Manual) 3.0 L Seg Neutrophils # Man 8.6 H Lymphocytes # (Manual) 0.3 L PT INR POC ABG pH POC ABG pCO2 POC ABG pO2 Sodium Potassium Chloride Carbon Dioxide BUN Creatinine Glucose Calcium Total Creatine Kinase CK-MB (CK-2) Rel Index NT-Pro-B Natriuret Pep Fluid Glucose 88 H Fluid Total Protein 03/28/17 03/30/17 05:27 05:58 Hgb Hct MCV MCH MCHC RDW Lymph % (Auto) [place] % (Auto) Lymph # [place] # Seg Neutrophils % Seg Neuts % (Manual) Lymphocytes % (Manual) Seg Neutrophils # Man Lymphocytes # (Manual) PT 15.4 H INR 1.16 H POC ABG pH POC ABG pCO2 POC ABG pO2 Sodium Potassium Chloride Carbon Dioxide 32 H BUN 35 H Creatinine 0.7 L Glucose 61 L Calcium 8.2 L Total Creatine Kinase CK-MB (CK-2) Rel Index NT-Pro-B Natriuret Pep Fluid Glucose Fluid Total Protein
--- NOTE | 2017-03-31 15:02 | Operative Report ---
PROCEDURE: Upper endoscopy with G-tube placement. PREOPERATIVE DIAGNOSES: Aspiration pneumonia and oropharyngeal dysphagia. POSTOPERATIVE DIAGNOSES: Erosive duodenitis and successful G-tube placement. SEDATION: MAC by Anesthesia. HISTORY: The patient is a 81-year-old man who has aspiration pneumonia. He has failed speech evaluation. Procedure, indications, risks, and benefits were explained and consent was obtained. DESCRIPTION OF PROCEDURE: The patient was placed back on exam table and sedated. Thrombo[employer]ics[employer] video upper endoscope was passed through the mouth and oropharynx into the descending duodenum. Scope was then gradually withdrawn with close inspection of mucosa into the gastric lumen. The stomach was insufflated and an appropriate location was transilluminated on the abdominal wall surface. This was prepped and draped in a sterile fashion. 2 mL of 1% Xylocaine were infiltrated into the skin and subcutaneous tissues using the safe tract technique. Then, trocar was placed percutaneously into the gastric lumen and guidewire was passed through this. This was captured with a snare and pulled out of the mouth. A 20-Ch[place] pull type G-tube was attached to the wire at the mouth and pulled through the mouth and oropharynx into the gastric lumen and out the skin. External bumper was fixed at 2 cm. FINDINGS: 1. Normal esophagus. 2. Normal appearing gastric antrum, fundus, body, and cardia. 3. Successful 20-Ch[place] G-tube placement with placement confirmed by repeat upper endoscopy. 4. Moderate erosive duodenitis with shallow white based ulcers noted scattered in the proximal duodenum. There was no stigmata of bleeding and duodenum was otherwise normal. The patient tolerated the procedure well without immediate complications. Estimated blood loss is less than 2 mL. A 20-Ch[place] G-tube was left in place. IMPRESSION: 1. Erosive duodenitis. 2. Successful G-tube placement. PLAN: 1. Initiate tube feedings in 4 hours. 2. Chronic proton-pump inhibitors or H2 blockers. [facility]# [id number] HRC/NTS
[2017-03-31] MEDS: ZESTRIL PO SCH (16:00)
[2017-03-31] MEDS: FEOSOL PO SCH ×2 (16:00→21:17)
[2017-03-31] MEDS: VITAMIN B-12 PO SCH (16:00)
[2017-03-31] MEDS: LOPRESSOR PO SCH ×2 (16:00→21:19)
--- NOTE | 2017-03-31 16:26 | Progress Note ---
Assessment and Plan Assessment and plan: Acute hypoxic hypercapnic respiratory failure - Patient was treated with IV antibiotics, BiPAP - Currently saturating well - On prednsolone Acute systolic CHF - Patient is on IV Lasix 20 mg daily - Patient is started on lisinopril and metoprolol low-dose Aspiration pneumonia, with right-sided pleural effusion -Patient is on IV Levaquin and clindamycin -Chest CT showed spiculated lesions -Pulmonary consult appreciated -Thoracentesis was done and about 1.3 L of yellow fluid was drained, transudative fluid Dementia - Supportive care Severe malnutrition - PEG tube placed DVT prophylaxis - Heparin Disposition - Patient will be discharged to hospice. History Interval history: patient was seen and evaluated this morning, patient didn't complain fever, pain. Patient is demented.I have discussed the management plan with his son. Patient will be discharged to home hospice once hospital bed is available. Hospitalist Physical - Physical exam Narrative exam: Not in cardiopulmonary distress. The patient is emaciated. Vital signs as documented. Head exam is unremarkable. No scleral icterus . Neck is without jugular venous distension, thyromegaly, or carotid bruits. Lungs creps on the right lower lung zone. Cardiac exam reveals regular rate and Rhythm. First and second heart sounds normal. No murmurs, rubs or gallops. Abdominal exam reveals PEG tube in place. Extremities are nonedematous and both femoral and pedal pulses are normal. Skin some bruises all over. [employer]LO[employer]AY[employer]: Alert and demented. - Constitutional Vitals: Temp Pulse Resp BP Pulse Ox 97.2 F L 76 15 130/74 95 03/31/17 10:31 03/31/17 10:47 03/31/17 10:47 03/31/17 10:47 03/31/17 10:47 Results - Labs CBC & Chem 7: 03/28/17 05:27 03/28/17 05:27 Labs: Laboratory Last Values WBC 9.2 K/mm3 (4.5-11.0) 03/28/17 05:27 RBC 4.00 M/mm3 (3.65-5.03) 03/28/17 05:27 Hgb 9.6 gm/dl (11.8-15.2) L 03/28/17 05:27 Hct 30.6 % (35.5-45.6) L 03/28/17 05:27 MCV 76 fl (84-94) L 03/28/17 05:27 MCH 24 pg (28-32) L 03/28/17 05:27 MCHC 32 % (32-34) 03/28/17 05:27 RDW 20.7 % (13.2-15.2) H 03/28/17 05:27 Plt Count 272 K/mm3 (140-440) 03/28/17 05:27 Lymph % (Auto) 6.3 % (13.4-35.0) L 03/25/17 05:59 [place] % (Auto) 9.9 % (0.0-7.3) H 03/25/17 05:59 Eos % (Auto) 0.1 % (0.0-4.3) 03/25/17 05:59 Baso % (Auto) 0.0 % (0.0-1.8) 03/25/17 05:59 Lymph # 0.4 K/mm3 (1.2-5.4) L 03/25/17 05:59 [place] # 0.7 K/mm3 (0.0-0.8) 03/25/17 05:59 Eos # 0.0 K/mm3 (0.0-0.4) 03/25/17 05:59 Baso # 0.0 K/mm3 (0.0-0.1) 03/25/17 05:59 Add Manual Diff Complete 03/28/17 05:27 Total Counted 100 03/28/17 05:27 Seg Neutrophils % 83.7 % (40.0-70.0) H 03/25/17 05:59 Seg Neuts % (Manual) 94.0 % (40.0-70.0) H 03/28/17 05:27 Band Neutrophils % 2.0 % 03/28/17 05:27 Lymphocytes % (Manual) 3.0 % (13.4-35.0) L 03/28/17 05:27 Reactive Lymphs % (Man) 0 % 03/28/17 05:27 Monocytes % (Manual) 0 % (0.0-7.3) 03/28/17 05:27 Eosinophils % (Manual) 1.0 % (0.0-4.3) 03/28/17 05:27 Basophils % (Manual) 0 % (0.0-1.8) 03/28/17 05:27 Metamyelocytes % 0 % 03/28/17 05:27 Myelocytes % 0 % 03/28/17 05:27 Promyelocytes % 0 % 03/28/17 05:27 Blast Cells % 0 % 03/28/17 05:27 Nucleated RBC % Not Reportable 03/28/17 05:27 Seg Neutrophils # 5.9 K/mm3 (1.8-7.7) 03/25/17 05:59 Seg Neutrophils # Man 8.6 K/mm3 (1.8-7.7) H 03/28/17 05:27 Band Neutrophils # 0.2 K/mm3 03/28/17 05:27 Lymphocytes # (Manual) 0.3 K/mm3 (1.2-5.4) L 03/28/17 05:27 Abs React Lymphs (Man) 0.0 K/mm3 03/28/17 05:27 Monocytes # (Manual) 0.0 K/mm3 (0.0-0.8) 03/28/17 05:27 Eosinophils # (Manual) 0.1 K/mm3 (0.0-0.4) 03/28/17 05:27 Basophils # (Manual) 0.0 K/mm3 (0.0-0.1) 03/28/17 05:27 Metamyelocytes # 0.0 K/mm3 03/28/17 05:27 Myelocytes # 0.0 K/mm3 03/28/17 05:27 Promyelocytes # 0.0 K/mm3 03/28/17 05:27 Blast Cells # 0.0 K/mm3 03/28/17 05:27 WBC Morphology Not Reportable 03/28/17 05:27 Hypersegmented Neuts Not Reportable 03/28/17 05:27 Hyposegmented Neuts Not Reportable 03/28/17 05:27 Hypogranular Neuts Not Reportable 03/28/17 05:27 Smudge Cells Not Reportable 03/28/17 05:27 Toxic Granulation Not Reportable 03/28/17 05:27 Toxic Vacuolation Not Reportable 03/28/17 05:27 Dohle Bodies Not Reportable 03/28/17 05:27 Pelger-Huet Anomaly Not Reportable 03/28/17 05:27 Star Rods Not Reportable 03/28/17 05:27 Platelet Estimate Appears normal 03/28/17 05:27 Clumped Platelets Not Reportable 03/28/17 05:27 Plt Clumps, EDTA Not Reportable 03/28/17 05:27 Large Platelets Not Reportable 03/28/17 05:27 Giant Platelets Not Reportable 03/28/17 05:27 Platelet Satelliting Not Reportable 03/28/17 05:27 Plt Morphology Comment Not Reportable 03/28/17 05:27 RBC Morphology Not Reportable 03/28/17 05:27 Dimorphic RBCs Not Reportable 03/28/17 05:27 Polychromasia Not Reportable 03/28/17 05:27 Hypochromasia 2+ 03/28/17 05:27 Poikilocytosis Not Reportable 03/28/17 05:27 Anisocytosis 1+ 03/28/17 05:27 Microcytosis Not Reportable 03/28/17 05:27 Macrocytosis Not Reportable 03/28/17 05:27 Spherocytes Not Reportable 03/28/17 05:27 Pappenheimer Bodies Not Reportable 03/28/17 05:27 Sickle Cells Not Reportable 03/28/17 05:27 Target Cells Not Reportable 03/28/17 05:27 Tear Drop Cells Not Reportable 03/28/17 05:27 Ovalocytes Not Reportable 03/28/17 05:27 Helmet Cells Not Reportable 03/28/17 05:27 Av[place] Bodies Not Reportable 03/28/17 05:27 Mershon Rings Not Reportable 03/28/17 05:27 Epifanio Cells Not Reportable 03/28/17 05:27 Bite Cells Not Reportable 03/28/17 05:27 Crenated Cell Not Reportable 03/28/17 05:27 Elliptocytes Not Reportable 03/28/17 05:27 Acanthocytes (Spur) Not Reportable 03/28/17 05:27 Rouleaux Not Reportable 03/28/17 05:27 Hemoglobin C Crystals Not Reportable 03/28/17 05:27 Schistocytes Not Reportable 03/28/17 05:27 Malaria parasites Not Reportable 03/28/17 05:27 Valentin Bodies Not Reportable 03/28/17 05:27 Hem Pathologist Commnt No 03/28/17 05:27 PT 15.4 Sec. (12.2-14.9) H 03/30/17 05:58 INR 1.16 (0.87-1.13) H 03/30/17 05:58 POC ABG pH 7.397 (7.35-7.45) 03/24/17 16:02 POC ABG pCO2 61.3 (35-45) H 03/24/17 16:02 POC ABG pO2 85 (80-105) 03/24/17 16:02 POC ABG HCO3 37.7 03/24/17 16:02 POC ABG Total CO2 40 03/24/17 16:02 POC ABG O2 Sat 96 03/24/17 16:02 POC ABG Base Excess 13 03/24/17 16:02 FiO2 45 % 03/24/17 16:02 Sodium 145 mmol/L (137-145) 03/28/17 05:27 Potassium 4.2 mmol/L (3.6-5.0) 03/28/17 05:27 Chloride 103.9 mmol/L (98-107) 03/28/17 05:27 Carbon Dioxide 32 mmol/L (22-30) H 03/28/17 05:27 Anion Gap 13 mmol/L 03/28/17 05:27 BUN 35 mg/dL (9-20) H 03/28/17 05:27 Creatinine 0.7 mg/dL (0.8-1.5) L 03/28/17 05:27 Estimated GFR > 60 ml/min 03/28/17 05:27 BUN/Creatinine Ratio 50 % 03/28/17 05:27 Glucose 61 mg/dL (75-100) L 03/28/17 05:27 POC Glucose 83 (70-105) 03/24/17 01:11 Lactic Acid 1.20 mmol/L (0.7-2.0) 03/24/17 00:01 Calcium 8.2 mg/dL (8.4-10.2) L 03/28/17 05:27 Magnesium 2.20 mg/dL (1.7-2.3) 03/24/17 00:01 Total Creatine Kinase 25 units/L (55-170) L 03/24/17 00:01 CK-MB (CK-2) 3.8 ng/mL (0.0-4.0) 03/24/17 00:01 CK-MB (CK-2) Rel Index 15.2 (0-4) H 03/24/17 00:01 Troponin T 0.015 ng/mL (0.00-0.029) 03/24/17 00:01 NT-Pro-B Natriuret Pep 6340 pg/mL (0-900) H 03/24/17 00:01 Urine Color Yellow (Yellow) 03/24/17 01:29 Urine Turbidity Clear (Clear) 03/24/17 01:29 Urine pH 5.0 (5.0-7.0) 03/24/17 01:29 Ur Specific [place] 1.024 (1.003-1.030) 03/24/17 01:29 Urine Protein 30 mg/dl mg/dL (Negative) 03/24/17 01:29 Urine Glucose (UA) Neg mg/dL (Negative) 03/24/17 01:29 Urine Ketones Neg mg/dL (Negative) 03/24/17 01:29 Urine Blood Sm (Negative) 03/24/17 01:29 Urine Nitrite Neg (Negative) 03/24/17 01:29 Urine Bilirubin Neg (Negative) 03/24/17 01:29 Urine Urobilinogen 2.0 mg/dL (<2.0) 03/24/17 01:29 Ur Leukocyte Esterase Neg (Negative) 03/24/17 01:29 Urine WBC (Auto) 2.0 /HPF (0.0-6.0) 03/24/17 01:29 Urine RBC (Auto) 44.0 /HPF (0.0-6.0) 03/24/17 01:29 Hyaline Casts 38 /LPF 03/24/17 01:29 Granular Casts 7 /LPF 03/24/17 01:29 Urine Mucus Few /HPF 03/24/17 01:29 Fluid Type Pleural 03/26/17 13:45 Fluid Color Yellow 03/26/17 13:45 Fluid Appearance Cloudy 03/26/17 13:45 Fluid WBC 267 /mm3 03/26/17 13:45 Fluid RBC 577 /mm3 03/26/17 13:45 Fluid Diff Comment 03/26/17 13:45 Fluid Seg Neutrophils 49.0 % 03/26/17 13:45 Fluid Lymphocytes 41.0 % 03/26/17 13:45 Fluid Reactive Lymphs 0 % 03/26/17 13:45 Fluid Monocytes 10.0 % 03/26/17 13:45 Fluid Eosinophils 0 % 03/26/17 13:45 Fluid Basophils 0 % 03/26/17 13:45 Fluid Glucose 88 mg/dL (40-70) H 03/26/17 13:45 Fluid Total Protein < 3.0 (15.0-45.0) L 03/24/17 13:45 Fluid LDH 232 03/26/17 13:45
[2017-03-31] MEDS: NORCO 5/325 PO PRN (21:18)
[2017-04-01] MEDS: DUONEB *Not for PRN Use IH SCH ×2 (02:08→09:29)
[2017-04-01] MEDS: CLEOCIN 600 MG/50 mL 600 MG/50 ML BAG IV SCH (06:02)
[2017-04-01 09:06] LABS: BUN/Creatinine Ratio 78; Blood Urea Nitrogen 39 mg/dL (9-20); Calcium 8.6 mg/dL (8.4-10.2); Hemolysis Index 10
[2017-04-01] MEDS: BROVANA NEBU IH SCH (09:28)
[2017-04-01] MEDS: PULMICORT IH SCH (09:28)
[2017-04-01 09:39] VITALS: BP 136/62
[2017-04-01] MEDS ORDERED: PEPCID PO SCH (10:00)
--- NOTE | 2017-04-01 10:45 | Discharge Summary ---
Providers - Providers Date of Admission: 03/24/17 01:04 Date of discharge: 04/01/17 Attending physician: REBEKA HOUSTON MD 03/24/17 04:34 Consult to Physician [CONS] Routine Consulting Provider: GLADYS MARLEY Reason For Exam: large right pleural effusion Place consult to:: Dr. Marley Notified:: Soraya RN Phone number called:: Was contact made?: Yes If yes, spoke with:: [place] service Time called:: 08:25 03/24/17 04:38 Consult to Wound/ET Nurse [CONS] Routine Reason For Exam: wound eval Speech Therapy Evaluation and Treat [CONS] Routine Reason For Exam: swallow eval 03/27/17 06:49 Consult to Dietitian/Nutrition [CONS] Routine Physician Instructions: Reason For Exam: Reason for Consult: Malnutrition 03/29/17 09:11 Consult to Physician [CONS] Routine Consulting Provider: INNA GARRISON Reason For Exam: malnutrition,poor oral intake, aspiration pneumoni Place consult to:: Zina Hernandez Notified:: Crystal NOLASCO Was contact made?: Yes If yes, spoke with:: Roz Norwood Time called:: 10:50 03/30/17 15:02 Consult to Case Management [CONS] Routine Services Needed at Discharge: Other Notified:: RAMONITA If yes, spoke with:: YES Time called:: 15:03 Additional Physician Instructions: NIV 03/30/17 15:42 Consult to Case Management [CONS] Routine Services Needed at Discharge: Other Notified:: ramonita Time called:: 15:44 Additional Physician Instructions: home hospice eval & treat if approp for home hospice 03/31/17 12:44 Consult to Dietitian/Nutrition [CONS] Routine Physician Instructions: Reason For Exam: Reason for Consult: Write/Manage Tube Feeding Primary care physician: CREW LEADER Hospitalization Condition: Stable Disposition: DC-50 TO HOSPICE (HOME) Time spent for discharge: 31 minutes - Discharge Diagnoses (1) Acute systolic (congestive) heart failure Status: Acute (2) Acute respiratory failure with hypoxemia Status: Acute (3) COPD (chronic obstructive pulmonary disease) Status: Acute Qualifiers: COPD type: COPD with acute lower respiratory infection Qualified Code(s): J44.0 - Chronic obstructive pulmonary disease with acute lower respiratory infection (4) Encephalopathy acute Status: Acute (5) Aspiration pneumonia Status: Acute Core Measure Documentation - Palliative Care Palliative Care/ Comfort Measures: Not Applicable - Core Measures Any of the following diagnoses?: heart failure - Heart Failure Discharge Requirements APURVA/ARB for LVSD if EF <40%: Yes Beta isela at discharge: Yes Exam - Physical Exam Narrative exam: Not in cardiopulmonary distress. The patient is emaciated. Vital signs as documented. Head exam is unremarkable. No scleral icterus . Neck is without jugular venous distension, thyromegaly, or carotid bruits. Lungs creps on the right lower lung zone. Cardiac exam reveals regular rate and Rhythm. First and second heart sounds normal. No murmurs, rubs or gallops. Abdominal exam reveals PEG tube in place. Extremities are nonedematous and both femoral and pedal pulses are normal. Skin some bruises all over. 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 - Constitutional Vitals: Temp Pulse Resp BP Pulse Ox 97.3 F L 80 19 136/62 97 04/01/17 09:38 04/01/17 09:43 04/01/17 09:43 04/01/17 09:38 04/01/17 09:38 Plan Activity: fall precautions Weight Bearing Status: Weight Bear as Tolerated Diet: low cholesterol, low salt Durable Medical Equipment Needed Upon Discharge: Oxygen, Hospital Bed Follow up with: PRIMARY CARE, [Primary Care Provider] - 7 Days Prescriptions: ALBUTEROL NEB's [Proventil 0.083% NEBS] 2.5 mg IH Q4HRT PRN #30 nebu PRN Reason: Shortness Of Breath Arformoterol Nebu [Brovana Nebu] 15 mcg IH Q12HRT #30 ml Bisacodyl [Dulcolax suppos] 10 mg GA QDAY PRN #30 supp.rect PRN Reason: Constipation unrelieved by MOM Clindamycin [Clindamycin CAP] 300 mg PO Q8H #12 cap Cyanocobalamin [Vitamin B-12] 1,000 mcg PO QDAY #30 tablet Furosemide [Lasix] 20 mg PO QDAY #30 tablet HYDROcodone/APAP 5-325 [[place] 5-325 mg TAB] 1 each PO Q6H PRN #15 tablet PRN Reason: Pain, Moderate (4-6) Levofloxacin [Levaquin TAB] 500 mg PO QDAY #4 tablet Lisinopril [Zestril TAB] 2.5 mg PO QDAY #30 tablet Metoprolol [Lopressor TAB] 25 mg PO BID #60 tablet Potassium Chloride 10 meq PO QDAY #30 capsule.er
[2017-04-01] MEDS: VITAMIN B-12 PO SCH (11:20)
[2017-04-01] MEDS: ZESTRIL PO SCH (11:20)
[2017-04-01] MEDS: FEOSOL PO SCH (11:22)
[2017-04-01] MEDS: LOPRESSOR PO SCH (11:23)
[2017-04-01] MEDS: LEVAQUIN 750MG/150ML 750 MG/150 ML BAG IV SCH (11:24)
--- NOTE | 2017-04-01 12:08 | Progress Note ---
Assessment and Plan 1. s/p G-tube placement - doing well. Okay to D/C from GI standpoint. Will sign off. Subjective Date of service: 04/01/17 Interval history: Pt denies abd pain. Dennys TF. Wants to go home. Objective - Constitutional Vitals: Vital Signs - 12hr 04/01/17 04/01/17 04/01/17 02:00 02:09 05:05 Temperature 98.4 F Pulse Rate 78 Pulse Rate [ 87 92 H Anterior Throughout] Respiratory 18 Rate Respiratory 18 18 Rate [Anterior Throughout] Blood Pressure 98/65 Blood Pressure [Left] O2 Sat by Pulse 90 Oximetry 04/01/17 04/01/17 04/01/17 06:00 07:21 08:15 Temperature 97.3 F L Pulse Rate 74 Pulse Rate [ Anterior Throughout] Respiratory 18 18 Rate Respiratory Rate [Anterior Throughout] Blood Pressure 136/62 Blood Pressure [Left] O2 Sat by Pulse Oximetry 04/01/17 04/01/17 04/01/17 09:29 09:30 09:38 Temperature 97.3 F L Pulse Rate 79 Pulse Rate [ 68 Anterior Throughout] Respiratory 18 Rate Respiratory 17 Rate [Anterior Throughout] Blood Pressure Blood Pressure 136/62 [Left] O2 Sat by Pulse 99 97 Oximetry 04/01/17 04/01/17 04/01/17 09:43 11:20 11:23 Temperature Pulse Rate 86 86 Pulse Rate [ 80 Anterior Throughout] Respiratory Rate Respiratory 19 Rate [Anterior Throughout] Blood Pressure 136/62 136/62 Blood Pressure [Left] O2 Sat by Pulse Oximetry General appearance: Present: no acute distress - EENT Eyes: PERRL, EOM intact ENT: hearing intact - Respiratory Respiratory effort: normal - Gastrointestinal General gastrointestinal: Present: soft, non-tender, other (G-tube site clean, no discharge.) - Labs CBC & Chem 7: 03/28/17 05:27 04/01/17 08:17 Labs: Abnormal lab results 04/01/17 Range/Units 08:17 BUN 39 H (9-20) mg/dL Creatinine 0.5 L (0.8-1.5) mg/dL
--- NOTE | 2017-04-01 13:53 | Progress Note ---
Assessment and Plan 81 y/o male with acute respiratory failure, abnormal CT scan with right sided pleural effusion and upper lobe spiculated lesions and diffuse emphysema. 1. Pulmonary will continue to follow 2. Continue pulmicort and brovana BID 3. Continue IV steroids, can switch to Prednisone 40 when able to use Peg tube. Taper as follows. 40x3, 20x3, 10x3 then stop. 4. If discharged, would consider sending out on low dose PO lasix therapy as well 5. Would discharge on BID neb therapy, most likely this would be easier for the patient to administer. 6. No objection to discharge from our standpoint. Subjective Date of service: 04/01/17 Interval history: No acute events. Per chart, being discharge today. Objective Vital Signs - 12hr 04/01/17 04/01/17 04/01/17 02:00 02:09 05:05 Temperature 98.4 F Pulse Rate 78 Pulse Rate [ 87 92 H Anterior Throughout] Respiratory 18 Rate Respiratory 18 18 Rate [Anterior Throughout] Blood Pressure 98/65 Blood Pressure [Left] O2 Sat by Pulse 90 Oximetry 04/01/17 04/01/17 04/01/17 06:00 07:21 08:15 Temperature 97.3 F L Pulse Rate 74 Pulse Rate [ Anterior Throughout] Respiratory 18 18 Rate Respiratory Rate [Anterior Throughout] Blood Pressure 136/62 Blood Pressure [Left] O2 Sat by Pulse Oximetry 04/01/17 04/01/17 04/01/17 09:29 09:30 09:38 Temperature 97.3 F L Pulse Rate 79 Pulse Rate [ 68 Anterior Throughout] Respiratory 18 Rate Respiratory 17 Rate [Anterior Throughout] Blood Pressure Blood Pressure 136/62 [Left] O2 Sat by Pulse 99 97 Oximetry 04/01/17 04/01/17 04/01/17 09:43 11:20 11:23 Temperature Pulse Rate 86 86 Pulse Rate [ 80 Anterior Throughout] Respiratory Rate Respiratory 19 Rate [Anterior Throughout] Blood Pressure 136/62 136/62 Blood Pressure [Left] O2 Sat by Pulse Oximetry Constitutional: no acute distress, alert Eyes: non-icteric ENT: oropharynx moist Neck: supple Effort: normal Ascultation: Bilateral: rhonchi (rare) Cardiovascular: regular rate and rhythm Gastrointestinal: normoactive bowel sounds, soft, non-tender, non-distended CBC and BMP: 03/28/17 05:27 04/01/17 08:17 ABG, PT/INR, D-dimer: ABG POC ABG pH 7.397 (7.35-7.45) 03/24/17 16:02 POC ABG pCO2 61.3 (35-45) H 03/24/17 16:02 POC ABG pO2 85 (80-105) 03/24/17 16:02 POC ABG HCO3 37.7 03/24/17 16:02 POC ABG Total CO2 40 03/24/17 16:02 POC ABG O2 Sat 96 03/24/17 16:02 PT/INR, D-dimer PT 15.4 Sec. (12.2-14.9) H 03/30/17 05:58 INR 1.16 (0.87-1.13) H 03/30/17 05:58 Abnormal lab findings: Abnormal Labs 03/23/17 03/23/17 03/24/17 22:52 23:19 00:01 Hgb 11.7 L Hct MCV 77 L MCH 25 L MCHC RDW 21.1 H Lymph % (Auto) 6.5 L [place] % (Auto) 11.8 H Lymph # 0.5 L [place] # 0.9 H Seg Neutrophils % 81.5 H Seg Neuts % (Manual) Lymphocytes % (Manual) Seg Neutrophils # Man Lymphocytes # (Manual) PT INR POC ABG pH 7.324 L 7.331 L POC ABG pCO2 72.2 H 69.4 H POC ABG pO2 39 L 33 L Sodium Potassium Chloride Carbon Dioxide BUN Creatinine Glucose Calcium Total Creatine Kinase CK-MB (CK-2) Rel Index NT-Pro-B Natriuret Pep Fluid Glucose Fluid Total Protein 03/24/17 03/24/17 03/24/17 00:01 09:44 13:45 Hgb Hct MCV MCH MCHC RDW Lymph % (Auto) [place] % (Auto) Lymph # [place] # Seg Neutrophils % Seg Neuts % (Manual) Lymphocytes % (Manual) Seg Neutrophils # Man Lymphocytes # (Manual) PT INR POC ABG pH 7.300 L POC ABG pCO2 80.4 H POC ABG pO2 114 H Sodium Potassium 5.2 H Chloride 97.7 L Carbon Dioxide BUN 32 H Creatinine 0.5 L Glucose 68 L Calcium Total Creatine Kinase 25 L CK-MB (CK-2) Rel Index 15.2 H NT-Pro-B Natriuret Pep 6340 H Fluid Glucose Fluid Total Protein < 3.0 L 03/24/17 03/25/17 03/25/17 16:02 05:59 05:59 Hgb 9.0 L Hct 30.2 L D MCV 77 L MCH 24 L MCHC 31 L RDW 20.5 H Lymph % (Auto) 6.3 L [place] % (Auto) 9.9 H Lymph # 0.4 L [place] # Seg Neutrophils % 83.7 H Seg Neuts % (Manual) Lymphocytes % (Manual) Seg Neutrophils # Man Lymphocytes # (Manual) PT INR POC ABG pH POC ABG pCO2 61.3 H POC ABG pO2 Sodium 146 H Potassium Chloride Carbon Dioxide 36 H BUN 28 H Creatinine 0.5 L Glucose Calcium Total Creatine Kinase CK-MB (CK-2) Rel Index NT-Pro-B Natriuret Pep Fluid Glucose Fluid Total Protein 03/26/17 03/26/17 03/26/17 10:04 10:04 10:14 Hgb 9.4 L Hct 29.5 L MCV 77 L MCH 24 L MCHC RDW 20.8 H Lymph % (Auto) [place] % (Auto) Lymph # [place] # Seg Neutrophils % Seg Neuts % (Manual) Lymphocytes % (Manual) Seg Neutrophils # Man Lymphocytes # (Manual) PT 15.7 H INR 1.19 H POC ABG pH POC ABG pCO2 POC ABG pO2 Sodium Potassium Chloride Carbon Dioxide 33 H BUN 28 H Creatinine 0.5 L Glucose Calcium 8.1 L Total Creatine Kinase CK-MB (CK-2) Rel Index NT-Pro-B Natriuret Pep Fluid Glucose Fluid Total Protein 03/26/17 03/27/17 03/28/17 13:45 07:18 05:27 Hgb 9.3 L 9.6 L Hct 29.8 L 30.6 L MCV 77 L 76 L MCH 24 L 24 L MCHC 31 L RDW 20.8 H 20.7 H Lymph % (Auto) [place] % (Auto) Lymph # [place] # Seg Neutrophils % Seg Neuts % (Manual) 94.0 H Lymphocytes % (Manual) 3.0 L Seg Neutrophils # Man 8.6 H Lymphocytes # (Manual) 0.3 L PT INR POC ABG pH POC ABG pCO2 POC ABG pO2 Sodium Potassium Chloride Carbon Dioxide BUN Creatinine Glucose Calcium Total Creatine Kinase CK-MB (CK-2) Rel Index NT-Pro-B Natriuret Pep Fluid Glucose 88 H Fluid Total Protein 03/28/17 03/30/17 04/01/17 05:27 05:58 08:17 Hgb Hct MCV MCH MCHC RDW Lymph % (Auto) [place] % (Auto) Lymph # [place] # Seg Neutrophils % Seg Neuts % (Manual) Lymphocytes % (Manual) Seg Neutrophils # Man Lymphocytes # (Manual) PT 15.4 H INR 1.16 H POC ABG pH POC ABG pCO2 POC ABG pO2 Sodium Potassium Chloride Carbon Dioxide 32 H BUN 35 H 39 H Creatinine 0.7 L 0.5 L Glucose 61 L Calcium 8.2 L Total Creatine Kinase CK-MB (CK-2) Rel Index NT-Pro-B Natriuret Pep Fluid Glucose Fluid Total Protein
== END 2017-04-01 12:00 | disposition hospice, home (50) | DRG 177 ==
LOC: ED 17:51 → 4A 03-24 01:04
PROVIDERS: ADMIT Internal Medicine; ATTEND Internal Medicine
PROC: 4A033R1 Measurement of Arterial Saturation, Peripheral, Percutaneous Approach (ICD-10-PCS; 2017-03-23)
PROC: 5A09457 Assistance with Respiratory Ventilation, 24-96 Consecutive Hours, Continuous Positive Airway Pressure (ICD-10-PCS; 2017-03-24)
PROC: 0W993ZZ Drainage of Right Pleural Cavity, Percutaneous Approach (ICD-10-PCS; 2017-03-26)
PROC: 3E0234Z Introduction of Serum, Toxoid and Vaccine into Muscle, Percutaneous Approach (ICD-10-PCS; 2017-03-27)
PROC: 0DH63UZ Insertion of Feeding Device into Stomach, Percutaneous Approach (ICD-10-PCS; principal; 2017-03-31)
DX: J69.0 Pneumonitis due to inhalation of food and vomit (principal); E43 Unspecified severe protein-calorie malnutrition; G93.40 Encephalopathy, unspecified; J96.21 Acute and chronic respiratory failure with hypoxia; J96.22 Acute and chronic respiratory failure with hypercapnia; I50.21 Acute systolic (congestive) heart failure; J44.1 Chronic obstructive pulmonary disease with (acute) exacerbation; Z68.1 Body mass index [BMI] 19.9 or less, adult; K29.80 Duodenitis without bleeding; R13.12 Dysphagia, oropharyngeal phase; F03.90 Unspecified dementia, unspecified severity, without behavioral disturbance, psychotic disturbance, mood disturbance, and anxiety; Z88.0 Allergy status to penicillin; Z23 Encounter for immunization
CPT/HCPCS: 32555; 36415; 36600; 70450; 71045; 71250; 74230; 80048; 81001; 82140; 82550; 82553; 82803; 82947; 82962; 83605; 83735; 83880; 84160; 84484; 85007; 85025; 85027; 85610; 87040; 87116; 87400; 88112; 88305; 89051; 90686; 90732; 93005; 93010; 93306; 94640; 94660; 94760; 96365; 99285; G8996-GN; G8997-GN; J0610; J1580; J1940; J1956; J2704; J2920; J7030; J7042